=== PATIENT | female | born 1945 | race Caucasian/White ===

== ENCOUNTER 2017-07-10 12:39 | Emergency (ER) | payer MEDICARE ==
[~2017-07-10] VITALS: Ht 149.9 cm; Wt 77.1 kg
[~2017-07-10 12:39] MED LIST: AMLODIPINE BESY10 MG; CARAFATE1 GM/10 ML PO; DEXILANT30 MG PO; HEARTBURN RELI150 M1; LISINOPRIL10 MG; NEXIUM40 MG; NITROFURANTOIN100 MG PO; NYSTATIN15 G2 TP; PHENAZOPYRIDIN100 MG PO; PRAVASTATIN SOD40 MG; PROTONIX40 MG PO; [UNRECOGNIZED DRUG - REMARK]
== END 2017-07-10 15:34 | disposition left against medical advice (07) ==
LOC: ER 12:39
DX: I10 Essential (primary) hypertension (principal)

== ENCOUNTER 2017-07-26 02:16 | Emergency (ER) | payer MEDICARE ==
[~2017-07-26] VITALS: Ht 149.9 cm; Wt 77.1 kg
[2017-07-26] MEDS ORDERED: ASPIRIN 81 MG CHEW TAB PO ONE (03:15)
[2017-07-26 03:18] LABS: BASOPHILS % 0.5 % (0.0-1.0); EOSINOPHILS # (AUTO) 0.1 (0.0-0.4); EOSINOPHILS % 1.5 % (0.0-6.0); HEMATOCRIT 40.3 % (34.2-44.1); HEMOGLOBIN 13.5 g/dL (12.0-16.0); LYMPHOCYTES # (AUTO) 2.7 (1.0-3.2); MEAN CORPUSCULAR HEMOGLOBIN 31.8 pg (28-32); MEAN CORPUSCULAR HGB CONC 33.5 g/dL (31-35); MONOCYTES # (AUTO) 0.6 (0.2-0.8); MONOCYTES % 9.4 % (4.4-11.3); NEUTROPHILS # (AUTO) 2.8 (2.1-6.9); NEUTROPHILS % 44.4 % (38.7-80.0); PLATELET COUNT 180 x10e3/uL (140-360); RED BLOOD COUNT 4.24 x10e6/uL (3.6-5.1); RED CELL DISTRIBUTION WIDTH 12.9 % (11.7-14.4)
[2017-07-26 03:24] LABS: INR 0.88; PROTHROMBIN TIME 12.4 seconds (11.9-14.5)
[2017-07-26 03:31] LABS: ALANINE AMINOTRANSFERASE 18 IU/L (0-55); ALBUMIN 3.8 g/dL (3.5-5.0); ALBUMIN/GLOBULIN RATIO 1.1 (0.8-2.0); ALKALINE PHOSPHATASE 81 IU/L (40-150); ANION GAP 15.7 mmol/L (8-16); BLOOD UREA NITROGEN 19 mg/dL (7-26); BUN/CREATININE RATIO 22 (6-25); CALCIUM 9.6 mg/dL (8.4-10.2); CARBON DIOXIDE 26 mmol/L (22-29); CHLORIDE 103 mmol/L (98-107); CREATINE KINASE 34 IU/L (29-168); CREATININE, SERUM 0.86 mg/dL (0.57-1.11); EST GLOMERULAR FILTRATION RATE > 60 ML/MIN (60-); GLUCOSE 123 mg/dL (74-118); POTASSIUM 3.7 mmol/L (3.5-5.1); SODIUM 141 mmol/L (136-145)
[2017-07-26 03:37] LABS: TROPONIN I 0.007 ng/mL (0-0.300)
[2017-07-26 04:11] LABS: BILIRUBIN,URINE NEGATIVE (NEGATIVE); KETONES,URINE NEGATIVE (NEGATIVE); LEUKOCYTE ESTERASE ,URINE NEGATIVE (NEGATIVE); NITRITE,URINE NEGATIVE (NEGATIVE); PROTEIN,URINE DIPSTICK NEGATIVE (NEGATIVE); URINE UROBILINOGEN 0.2 mg/dL (0.2 - 1)
[2017-07-26 04:14] LABS: CLARITY,URINE CLEAR (CLEAR); COLOR,URINE YELLOW (YELLOW)
[2017-07-26 04:26] LABS: BACTERIA,URINE RARE /HPF; EPITHELIAL CELLS,URINE FEW /LPF; RBC,URINE 0-5 /HPF (0-5); WBC,URINE (MAN) 0-5 /HPF (0-5)
[2017-07-26] MEDS ORDERED: BELLADONNA ALK/PHENOBARBITAL 5 ML UDC PO ONE (05:30)
[2017-07-26] MEDS ORDERED: LIDOCAINE VISC 2% SOLN 15 ML UDC PO ONE (05:30)
[2017-07-26] MEDS ORDERED: MAGNESIUM/ALUMINUM/SIMETHICONE 30 ML UDC PO ONE (05:30)
--- NOTE | 2017-07-26 05:47 | Diagnostic Imaging Report ---
EXAMINATION: CHEST SINGLE (PORTABLE) INDICATION: Chest pain COMPARISON: None FINDINGS: TUBES and LINES: None. LUNGS: Lungs are not well inflated. Lungs are clear. There is no evidence of pneumonia or pulmonary edema. PLEURA: No pleural effusion or pneumothorax. HEART AND MEDIASTINUM: The cardiomediastinal silhouette is unremarkable. BONES AND SOFT TISSUES: No acute osseous lesion. Soft tissues are unremarkable. UPPER ABDOMEN: No free air under the diaphragm. IMPRESSION: No acute thoracic abnormality. Signed by: Dr. Herminio López M.D. on 07/26/2017 5:44 AM
== END 2017-07-26 08:02 | disposition home or self-care (01) ==
LOC: ER 02:16
DX: I10 Essential (primary) hypertension (principal); K21.0 Gastro-esophageal reflux disease with esophagitis; K46.9 Unspecified abdominal hernia without obstruction or gangrene
CPT/HCPCS: 36415; 71010; 80053; 81001; 82550; 82553; 83880; 84484; 85025; 85610; 85730; 87086; 93005; 99284

== ENCOUNTER 2017-08-10 15:02 | Emergency (ER) | payer MEDICARE ==
[~2017-08-10] VITALS: Ht 149.9 cm; Wt 77.1 kg
[2017-08-10 16:35] LABS: BASOPHILS % 0.5 % (0.0-1.0); EOSINOPHILS % 0.4 % (0.0-6.0); HEMATOCRIT 44.5 % (34.2-44.1); LYMPHOCYTES # (AUTO) 1.8 (1.0-3.2); LYMPHOCYTES % 32.5 % (18.0-39.1); MEAN CORPUSCULAR HEMOGLOBIN 32.3 pg (28-32); MEAN CORPUSCULAR HGB CONC 33.7 g/dL (31-35); MEAN CORPUSCULAR VOLUME 95.9 fL (81-99); MONOCYTES # (AUTO) 0.5 (0.2-0.8); MONOCYTES % 8.3 % (4.4-11.3); NEUTROPHILS # (AUTO) 3.2 (2.1-6.9); NEUTROPHILS % 58.3 % (38.7-80.0); PLATELET COUNT 198 x10e3/uL (140-360); RED BLOOD COUNT 4.64 x10e6/uL (3.6-5.1); RED CELL DISTRIBUTION WIDTH 12.7 % (11.7-14.4)
[2017-08-10 16:47] LABS: INR 0.92; PROTHROMBIN TIME 12.8 seconds (11.9-14.5)
[2017-08-10 16:48] LABS: PARTIAL THROMBOPLASTIN TIME 36.4 seconds (23.8-35.5)
[2017-08-10 16:56] LABS: ALBUMIN 4.4 g/dL (3.5-5.0); ALBUMIN/GLOBULIN RATIO 1.2 (0.8-2.0); ANION GAP 14.8 mmol/L (8-16); CALCIUM 10.1 mg/dL (8.4-10.2); CREATININE, SERUM 0.93 mg/dL (0.57-1.11); POTASSIUM 3.8 mmol/L (3.5-5.1)
[2017-08-10 17:02] LABS: CREATINE KINASE MB 0.6 ng/mL (0.00-5.00); TROPONIN I 0.008 ng/mL (0-0.300)
[2017-08-10] MEDS ORDERED: AMLODIPINE BESY10 MG PO (18:15)
[2017-08-10] MEDS ORDERED: LISINOPRIL10 MG PO (18:15)
[2017-08-10] MEDS ORDERED: DIPHENOXYLATE-1 EACH PO (18:15)
[2017-08-10 18:51] LABS: BILIRUBIN,URINE NEGATIVE (NEGATIVE); KETONES,URINE 2+ (NEGATIVE); LEUKOCYTE ESTERASE ,URINE TRACE (NEGATIVE); NITRITE,URINE NEGATIVE (NEGATIVE); URINE UROBILINOGEN 0.2 mg/dL (0.2 - 1)
[2017-08-10 18:55] LABS: CLARITY,URINE SL CLOUDY (CLEAR); COLOR,URINE YELLOW (YELLOW); PROTEIN,URINE DIPSTICK TRACE (NEGATIVE)
--- NOTE | 2017-08-10 18:55 | Diagnostic Imaging Report ---
PROCEDURE:ABDOMEN ACUTE SERIES W/PA CXR COMPARISON:Patients [facility], DX, ABDOMEN COMP INCL UPR OR DECUB, 01/05/2017, 6:38. Patients [facility], , CHEST SINGLE (PORTABLE), 07/26/2017, 4:15. INDICATIONS:ABDOMEN PAIN, HIATAL HERNIA FINDINGS: CHEST: No acute thoracic abnormality. No pleural effusion or pneumothorax. No focal consolidations. Mild calcifications of the aortic arch. BOWEL PATTERN: Nonspecific, nonobstructive bowel gas pattern. SOFT TISSUES: Cholecystectomy clips. Multiple loops projected on the pelvis. BONES: Degenerative changes of the lumbar spine with bilateral facet arthropathy predominantly at L4-L5 and L5-S1. CONCLUSION: 1. No acute thoracic abnormality. 2. No evidence of bowel obstruction. Radha Long M.D. Dictated by: Radha Long M.D. on 08/10/2017 at 19:03 Electronically approved by: Radha Long M.D. on 08/10/2017 at 19:03
[2017-08-10 19:05] LABS: EPITHELIAL CELLS,URINE FEW /LPF; WBC,URINE (MAN) 0-5 /HPF (0-5)
[2017-08-10] MEDS ORDERED: DIATRIZOATE MEGL/DIATRIZOA SOD 30 ML BTL PO ONE (20:20)
[2017-08-10] MEDS ORDERED: SODIUM CHLORIDE 0.9% 250ML 250 ML IV ONE (20:45)
--- NOTE | 2017-08-10 21:27 | Diagnostic Imaging Report ---
EXAM: CT Abdomen and Pelvis WITH contrast INDICATION: Diverticulitis COMPARISON: None. TECHNIQUE: Abdomen and pelvis were scanned utilizing a multidetector helical scanner from the lung base to the pubic symphysis after administration of IV contrast. Coronal and sagittal reformations were obtained. Routine protocol was performed. Scan was performed when during portal venous phase. IV CONTRAST: 100 mL of Isovue-370 ORAL CONTRAST: Gastrografin RADIATION DOSE: Total DLP: 615.90 mGy*cm Estimated effective dose: (DLP x 0.015 x size factor) mSv COMPLICATIONS: None FINDINGS: LINES and TUBES: None. LOWER THORAX: Unremarkable HEPATOBILIARY: No focal hepatic lesions. No biliary ductal dilation. GALLBLADDER: There are cholecystectomy clips. SPLEEN: No splenomegaly. PANCREAS: No focal masses or ductal dilatation. ADRENALS: No adrenal nodules KIDNEYS/URETERS: Kidneys enhance symmetrically. No hydronephrosis. No cystic or solid mass lesions. No stones. GI TRACT: No abnormal distention, wall thickening, or evidence of bowel obstruction. Appendix is normal. PELVIC ORGANS/BLADDER: Multi fibroid uterus. LYMPH NODES: No lymphadenopathy. VESSELS: There is mild atherosclerotic disease in the aorta and major arterial branches. PERITONEUM / RETROPERITONEUM: No free air or fluid. BONES: There are degenerative changes in the lumbar spine. SOFT TISSUES: Unremarkable. IMPRESSION: 1. No evidence of acute intra-abdominal or pelvic abnormality. Specifically, no evidence of diverticulitis or diverticulosis. 2. 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 3. Multi fibroid uterus Signed by: Dr. Herminio López M.D. on 08/10/2017 9:23 PM
[2017-08-11] MEDS ORDERED: SODIUM CHLORIDE 0.9% 50ML 50 ML ONE (04:50)
[2017-08-11] MEDS ORDERED: IOPAMIDOL 370 MG/ML 200 ML INFUS..BTL INJ ONE (04:50)
== END 2017-08-10 22:32 | disposition home or self-care (01) ==
LOC: ER 15:02
DX: R10.32 Left lower quadrant pain (principal); I10 Essential (primary) hypertension; E11.9 Type 2 diabetes mellitus without complications; E78.5 Hyperlipidemia, unspecified; K21.9 Gastro-esophageal reflux disease without esophagitis
CPT/HCPCS: 36415; 74022; 74177; 80053; 81001; 82150; 82550; 82553; 83690; 83880; 84484; 85025; 85610; 85730; 93005; 99284; J7050

== ENCOUNTER 2017-08-12 12:17 | Observation (INO) | payer MEDICARE ==
[~2017-08-12] VITALS: Ht 149.9 cm; Wt 76.7 kg
[~2017-08-12 12:17] MED LIST changes: +AMLODIPINE BESY10 MG PO; +DIPHENOXYLATE-1 EACH PO; +LISINOPRIL10 MG PO
[2017-08-12] MEDS ORDERED: SODIUM CHLORIDE 0.9% 1000ML 1,000 ML IV STA (12:41)
[2017-08-12] MEDS ORDERED: PANTOPRAZOLE 40 MG 10ML VIAL IV STA ×2 (12:41→23:18)
[2017-08-12] MEDS ORDERED: MAGNESIUM/ALUMINUM/SIMETHICONE 30 ML UDC PO ONE (12:45)
[2017-08-12] MEDS ORDERED: BELLADONNA ALK/PHENOBARBITAL 5 ML UDC PO ONE (12:45)
[2017-08-12] MEDS ORDERED: LIDOCAINE VISC 2% SOLN 15 ML UDC PO ONE (13:30)
[2017-08-12 13:53] LABS: BASOPHILS % 0.7 % (0.0-1.0); BILIRUBIN,URINE NEGATIVE (NEGATIVE); EOSINOPHILS % 0.7 % (0.0-6.0); HEMATOCRIT 39.4 % (34.2-44.1); HEMOGLOBIN 13.3 g/dL (12.0-16.0); KETONES,URINE NEGATIVE (NEGATIVE); LEUKOCYTE ESTERASE ,URINE TRACE (NEGATIVE); LYMPHOCYTES # (AUTO) 1.3 (1.0-3.2); LYMPHOCYTES % 30.6 % (18.0-39.1); MEAN CORPUSCULAR HEMOGLOBIN 32.7 pg (28-32); MEAN CORPUSCULAR HGB CONC 33.8 g/dL (31-35); MEAN CORPUSCULAR VOLUME 96.8 fL (81-99); MONOCYTES # (AUTO) 0.4 (0.2-0.8); MONOCYTES % 8.6 % (4.4-11.3); NEUTROPHILS # (AUTO) 2.4 (2.1-6.9); NEUTROPHILS % 59.4 % (38.7-80.0); NITRITE,URINE NEGATIVE (NEGATIVE); PLATELET COUNT 130 x10e3/uL (140-360); PROTEIN,URINE DIPSTICK NEGATIVE (NEGATIVE); RED BLOOD COUNT 4.07 x10e6/uL (3.6-5.1); RED CELL DISTRIBUTION WIDTH 12.7 % (11.7-14.4); URINE UROBILINOGEN 0.2 mg/dL (0.2 - 1)
[2017-08-12 13:56] LABS: CLARITY,URINE HAZY (CLEAR); COLOR,URINE YELLOW (YELLOW)
[2017-08-12 14:03] LABS: BACTERIA,URINE FEW /HPF; EPITHELIAL CELLS,URINE FEW /LPF; RBC,URINE 0-5 /HPF (0-5); WBC,URINE (MAN) 0-5 /HPF (0-5)
[2017-08-12 14:19] LABS: ALANINE AMINOTRANSFERASE 13 IU/L (0-55); ALBUMIN 4.1 g/dL (3.5-5.0); ALBUMIN/GLOBULIN RATIO 1.1 (0.8-2.0); ALKALINE PHOSPHATASE 78 IU/L (40-150); AMYLASE 48 U/L (25-125); ANION GAP 14.7 mmol/L (8-16); BLOOD UREA NITROGEN 19 mg/dL (7-26); BUN/CREATININE RATIO 22 (6-25); CALCIUM 9.7 mg/dL (8.4-10.2); CARBON DIOXIDE 24 mmol/L (22-29); CHLORIDE 106 mmol/L (98-107); CREATININE, SERUM 0.88 mg/dL (0.57-1.11); EST GLOMERULAR FILTRATION RATE > 60 ML/MIN (60-); GLUCOSE 117 mg/dL (74-118); LIPASE 30 U/L (8-78); POTASSIUM 4.7 mmol/L (3.5-5.1); SODIUM 140 mmol/L (136-145)
[2017-08-12 15:02] LABS: CREATINE KINASE MB 0.9 ng/mL (0.00-5.00); TROPONIN I 0.018 ng/mL (0-0.300)
--- NOTE | 2017-08-12 17:03 | Diagnostic Imaging Report ---
EXAM: CTA Abdomen and Pelvis WITH and without contrast INDICATION: Abdominal pain COMPARISON: CT abdomen and pelvis 08/10/2017 TECHNIQUE: Abdomen and pelvis were scanned utilizing a multidetector helical scanner from the lung base to the pubic symphysis after administration of contrast. Coronal and sagittal reformations were obtained. Protocol: General survey IV CONTRAST: 100 mL of Isovue 370 ORAL CONTRAST: None COMPLICATIONS: None RADIATION DOSE: Total Exam DLP: 1127.8 mGy*cm. CTDIvol has been reviewed. It is below the limits set by the Radiation Protocol Committee (RPC). FINDINGS: LINES: None. Lower thorax: No parenchymal abnormality. No pneumothorax. No pleural effusion. Liver: No focal mass. No hepatomegaly. Normal parenchyma. The hepatic and portal veins are patent. Gallbladder: Cholecystectomy. Biliary tree: No intrahepatic duct dilation. No extrahepatic duct dilation. Spleen: No splenomegaly. No focal mass. Pancreas: Normal parenchymal enhancement. No focal mass. Normal pancreatic duct. No peripancreatic inflammatory changes. Kidneys: No obstructing calculi. No hydronephrosis. No solid enhancing mass. No cysts. No perinephric soft tissue inflammatory changes. Adrenal glands: No adrenal nodules.. Bladder: Normal urinary bladder. Pelvic organs: Multi fibroid uterus. GI: No bowel wall thickening. No air-fluid levels. The stomach and small bowel are normal. The colon is normal. Normal appendix. A moderate amount of retained feces limits intraluminal evaluation of the colon. Peritoneum/retroperitoneum: No pneumoperitoneum. No ascites. No drainable fluid collection. Lymph nodes: No lymphadenopathy. . Vessels: The abdominal aorta and iliac vessels are patent. The celiac, superior mesenteric, and inferior mesenteric arteries are patent. Single bilateral renal arteries are patent. Atherosclerotic calcifications. No evidence of dissection. Bones: No focal abnormality. Degenerative changes of the lumbar spine. Soft tissues: No focal abnormality. IMPRESSION: No acute abnormality of the abdomen and pelvis. Signed by: Dr. Alexis Hartmann M.D. on 08/12/2017 5:00 PM
[2017-08-12] MEDS ORDERED: HYDROMORPHONE 2MG/ML INJ IV PRN (18:15)
[2017-08-12] MEDS ORDERED: IOPAMIDOL 370 MG/ML 200 ML INFUS..BTL INJ ONE (18:24)
[2017-08-12] MEDS ORDERED: SODIUM CHLORIDE 0.9% 50ML 100 ML ONE (18:24)
[2017-08-12 20:00] VITALS: BP 148/69
[2017-08-12] MEDS: SODIUM CHLORIDE 0.9% 1000ML 1,000 ML IV SCH (20:04)
[2017-08-12 21:32] VITALS: BP 148/69
[2017-08-12] MEDS ORDERED: PANTOPRAZOLE SO40 MG PO (22:45)
[2017-08-12] MEDS ORDERED: ZANTAC150 MG PO (22:45)
[2017-08-12] MEDS ORDERED: FAMOTIDINE 20 MG TAB PO PRN (23:30)
[2017-08-12] MEDS ORDERED: PANTOPRAZOLE SOD 40 MG TABEC PO SCH (23:30)
[2017-08-13] VITALS (8 sets, daily range): BP systolic 114–162; BP diastolic 58–74
[2017-08-13] MEDS: LISINOPRIL 10 MG TAB PO SCH ×2 (00:56→21:15)
[2017-08-13] MEDS: SODIUM CHLORIDE 0.9% 1000ML 1,000 ML IV SCH ×3 (01:57→16:17)
[2017-08-13] MEDS: AMLODIPINE BESYLATE 10 MG TAB PO SCH (08:37)
[2017-08-13] MEDS: PANTOPRAZOLE 40 MG 10ML VIAL IV SCH ×2 (08:46→21:15)
[2017-08-13] MEDS ORDERED: PANTOPRAZOLE 40 MG 10ML VIAL IV SCH (09:00)
[2017-08-14] VITALS (7 sets, daily range): BP systolic 135–166; BP diastolic 65–74
[2017-08-14] MEDS: SODIUM CHLORIDE 0.9% 1000ML 1,000 ML IV SCH ×3 (03:44→16:58)
[2017-08-14] MEDS: PANTOPRAZOLE 40 MG 10ML VIAL IV SCH ×2 (07:19→21:01)
[2017-08-14] MEDS: ONDANSETRON HCL INJ 2 MG/ML VIAL IV PRN (08:11)
[2017-08-14] MEDS: AMLODIPINE BESYLATE 10 MG TAB PO SCH (08:18)
[2017-08-14] MEDS ORDERED: ONDANSETRON HCL INJ 2 MG/ML VIAL IV PRN (12:30)
[2017-08-14] MEDS ORDERED: HYDROMORPHONE 1MG/1ML INJ IV PRN (12:30)
[2017-08-14] MEDS ORDERED: HYDROMORPHONE 2MG/ML INJ IV PRN (12:45)
[2017-08-14] MEDS ORDERED: MIDAZOLAM HCL 2 MG/2 ML VIAL ONE (17:17)
[2017-08-14] MEDS ORDERED: FENTANYL CITRATE/PF 100MCG/2 ML INJ ONE (17:17)
[2017-08-14] MEDS ORDERED: PROPOFOL IV EMULSION 10 MG/ML 20 ML VIAL ONE (18:02)
[2017-08-14] MEDS ORDERED: LIDOCAINE HCL 2% LOCAL INJ 5 ML SDV VIAL INJ ONE (18:02)
[2017-08-14] MEDS: LISINOPRIL 10 MG TAB PO SCH (21:02)
[2017-08-15] VITALS (7 sets, daily range): BP systolic 133–178; BP diastolic 61–80
[2017-08-15] MEDS: SODIUM CHLORIDE 0.9% 1000ML 1,000 ML IV SCH ×3 (01:57→17:57)
[2017-08-15] MEDS: AMLODIPINE BESYLATE 10 MG TAB PO SCH (04:24)
[2017-08-15] MEDS: ONDANSETRON HCL INJ 2 MG/ML VIAL IV PRN ×2 (04:25→15:48)
[2017-08-15] MEDS: PANTOPRAZOLE 40 MG 10ML VIAL IV SCH ×2 (07:53→20:40)
[2017-08-15] MEDS: LISINOPRIL 10 MG TAB PO SCH (20:40)
--- NOTE | 2017-08-18 12:46 | Diagnostic Imaging Report ---
PROCEDURE: X-RAY UPPER GI SERIES WITH SMALL BOWEL FOLLOW-THROUGH TECHNIQUE:Multiple fluoroscopic spot images were acquired of the esophagus, stomach, and duodenum after the administration of thin and thick barium and effervescent crystals. Images were obtained in the upright and supine positions from multiple obliquities. Additional oral contrast was administered to the patient. Serial overhead images were obtained to document the progression of the contrast in the small bowel. Spot compression images of the terminal ileum were obtained. COMPARISON: None. INDICATIONS: PAIN AFTER EATING FINDINGS: ESOPHAGUS: Motility: Within normal limits. Mucosa: Unremarkable. Distensibility: Normal. GASTROESOPHAGEAL JUNCTION: No evidence of hiatal hernia. GASTROESOPHAGEAL REFLUX: Reflux to the level of the mid thoracic esophagus. STOMACH: Normally distensible and demonstrates normal contours and mucosal pattern. DUODENUM: Bulb and sweep are normal. Duodenal-jejunal junction is in the normal expected position. SMALL BOWEL FOLLOW THROUGH: Small bowel loops are normal in caliber and distribution. Spot compression views of the terminal ileum are normal. The transit time was normal. IMPRESSION: No acute radiographic abnormality. Gastroesophageal reflux to the midthoracic esophagus. Dictated by: Alexis Hartmann M.D. on 08/18/2017 at 12:55 Electronically approved by: Alexis Hartmann M.D. on 08/18/2017 at 12:55
== END 2017-08-15 20:52 | disposition home or self-care (01) ==
LOC: ER 12:17 → ERHOLD 18:46 → MED/SURG 20:06
PROVIDERS: ADMIT Surgery; ATTEND Surgery
DX: K29.70 Gastritis, unspecified, without bleeding (principal); K21.9 Gastro-esophageal reflux disease without esophagitis; I10 Essential (primary) hypertension; Z90.49 Acquired absence of other specified parts of digestive tract
CPT/HCPCS: 36415; 43239; 74174; 74249; 80053; 81001; 82150; 82550; 82553; 83690; 84484; 85025; 87086; 88305; 88312; 93005; 96360; 99284; G0378 ×4; J1170; J2001; J2250; J2405 ×2; J7030 ×4; Q9967

== ENCOUNTER 2017-11-18 19:16 | Emergency (ER) | payer MEDICARE ==
[~2017-11-18] VITALS: Ht 149.9 cm; Wt 76.7 kg
[~2017-11-18 19:16] MED LIST changes: +PANTOPRAZOLE SO40 MG PO; +ZANTAC150 MG PO
--- OUTSIDE RECORDS SUMMARY | 2017-11-18 19:19 | XMS REPORT ---
Author Author [facility] Address Unknown Phone Unavailable Care Team Providers Care Audit Associate Name Role Phone TEDDY OBREGON Unavailable Unavailable PEDRO LUIS PENALOZA Unavailable Unavailable Problems This patient has no known problems. Allergies, Adverse Reactions, Alerts This patient has no known allergies or adverse reactions. Medications This patient has no known medications. Results Test Description Test Time Test Comments Text Results Atomic Results Result Comments UPPER GI W/SMALL BOW [place] [address] Patient Name: JORDAN LINDER MR #: [id number] : 1945 Age/Sex: 71/F Req #: [id number] [facility] Physician: TEDDY OBREGON MD Ordered by: TEDDY OBREGON MD Report #: [id number] Location: MED/SURG Room/Bed: [facility] Procedure: [id number] DX/UPPER GI W/SMALL BOW Exam Date: 08/15/17 Exam Time: 0800 REPORT STATUS: Signed PROCEDURE: X-RAY UPPER GI SERIES WITH SMALL BOWEL FOLLOW- THROUGH TECHNIQUE: Multiple fluoroscopic spot images were acquired of the esophagus, stomach, and duodenum after the administration of thin and thick barium and effervescent crystals. Images were obtained in the upright and supine positions from multiple obliquities. Additional oral contrast was administered to the patient. Serial overhead images were obtained to document the progression of the contrast in the small bowel. Spot compression images of the terminal ileum were obtained. COMPARISON: None. INDICATIONS: PAIN AFTER EATING FINDINGS: ESOPHAGUS: Motility: Within normal limits. Mucosa: Unremarkable. Distensibility : Normal. GASTROESOPHAGEAL JUNCTION: No evidence of hiatal hernia. GASTROESOPHAGEAL REFLUX: Reflux to the level of the mid thoracic esophagus. STOMACH: Normally distensible and demonstrates normal contours and mucosal pattern. DUODENUM: Bulb and sweep are normal. Duodenal-jejunal junction is in the normal expected position. SMALL BOWEL FOLLOW THROUGH : Small bowel loops are normal in caliber and distribution. Spot compression views of the terminal ileum are normal. The transit time was normal. IMPRESSION: No acute radiographic abnormality. Gastroesophageal reflux to the midthoracic esophagus. Dictated by: Mathew Billings M.D. on 08/18/2017 at 12:55 Electronically approved by: Mathew Billings M.D. on 08/18/2017 at 12:55 Dictated By: MATHEW BILLINGS MD 1255 Transcribed By: LUCIO on 08/18/17 1255 COPY TO: TEDDY OBREGON MD CTA ABD/PELVIS [place] [address] Patient Name: JORDAN LINDER MR #: [id number] : 1945 Age/Sex: 71/F Req # : [id number] Adm Physician: Ordered by: MARY SIMPSON MD Report #: [id number] Location: ER Room/Bed: Procedure: [id number] CT/CTA ABD/PELVIS Exam Date: 08/12/17 Exam Time: 1530 REPORT STATUS: Signed EXAM: CTA Abdomen and Pelvis WITH and without contrast INDICATION: Abdominal pain COMPARISON: CT abdomen and pelvis 08/10/2017 TECHNIQUE: Abdomen and pelvis were scanned utilizing a multidetector helical scanner from the lung base to the pubic symphysis after administration of contrast. Coronal and sagittal reformations were obtained. Protocol: General survey IV CONTRAST: 100 mL of Isovue 370 ORAL CONTRAST: None COMPLICATIONS: None RADIATION DOSE: Total Exam DLP: 1127.8 mGy*cm. CTDIvol has been reviewed. It is below the limits set by the Radiation Protocol Committee (RPC). FINDINGS: LINES: None. Lower thorax: No parenchymal abnormality. No pneumothorax. No pleural effusion. Liver: No focal mass. No hepatomegaly. Normal parenchyma. The hepatic and portal veins are patent. Gallbladder: Cholecystectomy. Biliary tree: No intrahepatic duct dilation. No extrahepatic duct dilation. Spleen: No splenomegaly. No focal mass. Pancreas: Normal parenchymal enhancement. No focal mass. Normal pancreatic duct. No peripancreatic inflammatory changes. Kidneys: No obstructing calculi. No hydronephrosis. No solid enhancing mass. No cysts. No perinephric soft tissue inflammatory changes. Adrenal glands: No adrenal nodules.. Bladder: Normal urinary bladder. Pelvic organs: Multi fibroid uterus. GI: No bowel wall thickening. No air-fluid levels. The stomach and small bowel are normal. The colon is normal. Normal appendix. A moderate amount of retained feces limits intraluminal evaluation of the colon. Peritoneum/retroperitoneum: No pneumoperitoneum. No ascites. No drainable fluid collection. Lymph nodes: No lymphadenopathy. . Vessels: The abdominal aorta and iliac vessels are patent. The celiac, superior mesenteric, and inferior mesenteric arteries are patent. Single bilateral renal arteries are patent. Atherosclerotic calcifications. No evidence of dissection. Bones: No focal abnormality. Degenerative changes of the lumbar spine. Soft tissues: No focal abnormality. IMPRESSION: No acute abnormality of the abdomen and pelvis. Signed by: Dr. Mathew Billings M.D. on 08/12/2017 5:00 PM Dictated By: MATHEW BILLINGS MD 99 Transcribed By: DEEDEE on 08/12/171699 COPY TO: MARY SIMPSON MD CT ABDOMEN/PELVIS [place] [address] Patient Name: JORDAN LINDER MR #: [id number] : 1945 Age/Sex: 71/F Req #: [id number] [facility] Physician: Ordered by: PEDRO LUIS PENALOZA MD Report #: [id number] Location: ER Room/Bed: Procedure: [id number] CT/CT ABDOMEN/PELVIS W Exam Date: 08/10/17 Exam Time: 2100 REPORT STATUS: Signed EXAM: CT Abdomen and Pelvis WITH contrast INDICATION: Diverticulitis COMPARISON: None. TECHNIQUE: Abdomen and pelvis were scanned utilizing a multidetector helical scanner from the lung base to the pubic symphysis after administration of IV contrast. Coronal and sagittal reformations were obtained. Routine protocol was performed. Scan was performed when during portal venous phase. IV CONTRAST: 100 mL of Isovue-370 ORAL CONTRAST: Gastrografin RADIATION DOSE: Total DLP: 615.90 mGy*cm Estimated effective dose: (DLP x 0.015 x size factor) mSv COMPLICATIONS: None FINDINGS: LINES and TUBES: None. LOWER THORAX: Unremarkable HEPATOBILIARY: No focal hepatic lesions. No biliary ductal dilation. GALLBLADDER: There are cholecystectomy clips. SPLEEN: No splenomegaly. PANCREAS: No focal masses or ductal dilatation. ADRENALS: No adrenal nodules KIDNEYS/URETERS: Kidneys enhance symmetrically. No hydronephrosis. No cystic or solid mass lesions. No stones. GI TRACT: No abnormal distention, wall thickening, or evidence of bowel obstruction. Appendix is normal. PELVIC ORGANS/BLADDER: Multi fibroid uterus. LYMPH NODES: No lymphadenopathy. VESSELS: There is mild atherosclerotic disease in the aorta and major arterial branches. PERITONEUM / RETROPERITONEUM: No free air or fluid. BONES: There are degenerative changes in the lumbar spine. SOFT TISSUES: Unremarkable. IMPRESSION: 1. No evidence of acute intra-abdominal or pelvic abnormality. Specifically, no evidence of diverticulitis or diverticulosis. 2. 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 3. Multi fibroid uterus Signed by: Dr. Herminio López M.D. on 08/10/2017 9: 23 PM Dictated By: HERMINIO العلي MD 22 Transcribed By: DEEDEE on 08/10/172122 COPY TO: PEDRO LUIS PENALOZA MD ABDOMEN ACUTE SERIES W/PA CXR [place] [address] Patient Name: JORDAN LINDER MR #: [id number] : 1945 Age/Sex: 71/F Req #: [id number] Adm Physician: Ordered by: LOLI ALFARO MD Report #: [id number] Location: ER Room/Bed: Procedure: [id number] DX/ABDOMEN ACUTE SERIES W/PA CXR Exam Date: 08/10/17 Exam Time: 1830 REPORT STATUS: Signed PROCEDURE : ABDOMEN ACUTE SERIES W/PA CXR COMPARISON: [facility], , ABDOMEN COMP INCL UPR OR DECUB, 01/05/2017, 6:38. [facility], , CHEST SINGLE (PORTABLE), 07/26/2017, 4:15. INDICATIONS: ABDOMEN PAIN, HIATAL HERNIA FINDINGS: CHEST: No acute thoracic abnormality. No pleural effusion or pneumothorax. No focal consolidations. Mild calcifications of the aortic arch. BOWEL PATTERN: Nonspecific, nonobstructive bowel gas pattern. SOFT TISSUES: Cholecystectomy clips. Multiple loops projected on the pelvis. BONES: Degenerative changes of the lumbar spine with bilateral facet arthropathy predominantly at L4-L5 and L5-S1. CONCLUSION: 1. No acute thoracic abnormality. 2. No evidence of bowel obstruction. Radha Juarez M.D. Dictated by: Radha Juarez M.D. on 08/10/2017 at 19:03 Electronically approved by: Radha Juarez M.D. on 08/10/2017 at 19: 03 Dictated By: WYATT JUAREZ MD, MD 02 Transcribed By: LUCIO on 08/10/171902 COPY TO: LOLI ALFARO MD CHEST SINGLE (PORTABLE) [place] [address] Patient Name: JORDAN LINDER MR #: [id number] : 1945 Age/Sex: 71/F Req #: [id number] Adm Physician: Ordered by: PEDRO LUIS PENALOZA MD Report #: [id number] Location: ER Room/Bed: Procedure: [id number] DX/CHEST SINGLE (PORTABLE) Exam Date: 07/26/17 Exam Time: 0415 REPORT STATUS: Signed EXAMINATION: CHEST SINGLE (PORTABLE) INDICATION: Chest pain COMPARISON: None FINDINGS: TUBES and LINES: None. LUNGS: Lungs are not well inflated. Lungs are clear. There is no evidence of pneumonia or pulmonary edema. PLEURA: No pleural effusion or pneumothorax. HEART AND MEDIASTINUM: The cardiomediastinal silhouette is unremarkable. BONES AND SOFT TISSUES: No acute osseous lesion. Soft tissues are unremarkable. UPPER ABDOMEN: No free air under the diaphragm. IMPRESSION: No acute thoracic abnormality. Signed by: Dr. Herminio López M.D. on 07/26/2017 5:44 AM Dictated By: HERMINIO العلي MD 3 Transcribed By: DEEDEE on 07/26/17543 COPY TO: PEDRO LUIS PENALOZA MD
[2017-11-18 21:58] LABS: BILIRUBIN,URINE NEGATIVE (NEGATIVE); CLARITY,URINE CLEAR (CLEAR); COLOR,URINE YELLOW (YELLOW); KETONES,URINE NEGATIVE (NEGATIVE); LEUKOCYTE ESTERASE ,URINE NEGATIVE (NEGATIVE); NITRITE,URINE NEGATIVE (NEGATIVE); PROTEIN,URINE DIPSTICK NEGATIVE (NEGATIVE); RBC,URINE 0-5 /HPF (0-5); URINE UROBILINOGEN 0.2 mg/dL (0.2 - 1); WBC,URINE (MAN) 0-5 /HPF (0-5)
[2017-11-18 21:59] LABS: BACTERIA,URINE FEW /HPF; EPITHELIAL CELLS,URINE MANY /LPF
[2017-11-18 22:01] VITALS: BP 154/84
== END 2017-11-18 22:06 | disposition home or self-care (01) ==
LOC: ER 19:16
DX: M54.5 Low back pain (principal); S39.012A Strain of muscle, fascia and tendon of lower back, initial encounter; I10 Essential (primary) hypertension; E78.5 Hyperlipidemia, unspecified; K21.9 Gastro-esophageal reflux disease without esophagitis
CPT/HCPCS: 81001; 87086; 99282

== ENCOUNTER 2017-11-22 03:54 | Emergency (ER) | payer MEDICARE ==
[~2017-11-22] VITALS: Ht 149.9 cm; Wt 76.7 kg
--- OUTSIDE RECORDS SUMMARY | 2017-11-22 03:58 | XMS REPORT | Continuity of Care Document ---
Author Author [facility] Organization [facility] Address [address] [facility] [place] [address] Phone Unavailable Care Team Providers Care Animal Chiropractor Name Role Phone NONSTAFF PCP Unavailable Insurance Providers Guarantor Glory Linder Address [address] [facility] [address] [place] [address] Email [email or web address] Payer [employer] Policy Number [id number] Subscriber's Name Glory Linder Relationship 18 Self / Same As Patient Group Number [id number] Group Name [place] Effective Date 15 Advance Directives Directive Response Recorded Date/Time Does the patient have an advance directive? No 08/12/17 9:05pm If yes, is advance directive on file with [facility]? No 04/23/12 6:39am If not on file with [facility] will patient provide a copy? No 05/29/16 10:52pm Do you have a Directive to Physician? No 11/18/17 7:15pm Do you have a Medical Power of Rn Shift Mgr? No 11/18/17 7:15pm Do you have an out of hospital Do Not Resuscitate Order? No 11/18/17 7:15pm Do you have any special needs we should be aware of? No 11/18/17 7:15pm Do you have a support person here with you today? No 11/18/17 7:15pm Did patient receive Notice of Privacy Practices? Yes 11/18/17 7:15pm Did patient receive patient rights and responsibilities? Yes 11/18/17 7:15pm Problems Medical Problem Onset Date Status Abdominal pain Unknown Medications Current Home Medications Medication Dose Units Route Directions Days Qty Instructions Start Date Amlodipine Besylate 10 Mg Tablet 10 Mg Oral Daily 30 Tab Lisinopril 10 Mg Tablet 10 Mg Oral Bedtime 30 Tab Pantoprazole Sodium (Protonix) 40 Mg Tablet. 40 Mg Oral Every 12 Hours Ranitidine Hcl (Zantac) 150 Mg Tablet 150 Mg Oral Twice A Day as needed for Indigestion THERAPEUTICALLY SUBSTITUTED WITH PEPCID 20MG Past Home Medications Medication Directions Ordered Status Amlodipine Besylate 10 Mg Tablet, Qhs Discontinued Dexlansoprazole (Dexilant) 30 Mg Cap.mp, 30 Mg Oral Daily Discontinued Diphenoxylate Hcl/Atropine (Diphenoxylate-Atropine Tablet) 1 Each Tablet, 1 Tab Oral Every 6 Hours as needed for Diarrhea Discontinued Esomeprazole Magnesium (Nexium) 40 Mg Capsule., 1 Discontinued Lisinopril 10 Mg Tablet, Q Morning Discontinued Nitrofurantoin Macrocrystal (Nitrofurantoin) 100 Mg Capsule, 100 Mg Oral Three Times A Day Discontinued Nystatin 15 Gm Powder, 15 Gm Topical Discontinued Pantoprazole Sodium (Protonix) 40 Mg Suspdr.pkt, 40 Mg Oral Daily Discontinued Phenazopyridine Hcl 100 Mg Tablet, 100 Mg Oral Every Two Hours as needed for Pain Discontinued Pravastatin Sodium 40 Mg Tablet, Od Discontinued Pt Does Not Have List , Discontinued Ranitidine Hcl (Heartburn Relief) 150 Mg Tablet, Discontinued Sucralfate (Carafate) 1 Gm/10 Ml Oral.susp, 1 Gm Oral Four Times Daily Discontinued Social History Social History Problem Response Recorded Date/Time Onset Date Status Hx Psychiatric Problems No 08/12/2017 9:05pm Not Applicable Not Applicable Hx Eating Disorder No 08/12/2017 9:05pm Not Applicable Not Applicable Hx Substance Use Disorder No 08/12/2017 9:05pm Not Applicable Not Applicable Hx Depression No 08/12/2017 9:05pm Not Applicable Not Applicable Hx Alcohol Use No 08/12/2017 9:05pm Not Applicable Not Applicable Hx Substance Use Treatment No 08/12/2017 9:05pm Not Applicable Not Applicable Hx Physical Abuse No 08/12/2017 9:05pm Not Applicable Not Applicable Smoking Status Start Date Stop Date Never Smoker Hospital Discharge Instructions No hospital discharge instruction information available. Plan of Care Discharge Date 11/18/17 10:06pm Disposition HOME, SELF-CARE Condition at Discharge Stable Instructions/Education Provided Strains Prescriptions See Medication Section Referrals Delores Juárez Additional Instructions/Education REST; DRINK PLENTY OF WATER; FOLLOW UP WITH YOUR PCP; Functional Status No functional status information available. Allergies, Adverse Reactions, Alerts Allergen Type Severity Reaction Status Last Updated Sulfa (Sulfonamide Antibiotics) Allergy Unknown Active 08/12/17 Aspirin Adverse Reaction Unknown "Makes my Acid Reflux worse." Active Immunizations No immunization information available. Vital Signs Acute Vital Signs Vital Response Date/Time Temperature (Fahrenheit) 96.9 degrees F (97.6 - 99.5) 08/15/2017 7:45pm Pulse Pulse Rate (adult) 86 bpm (60 - 90) 11/18/2017 10:01pm Respiratory Rate 18 bpm (12 - 24) 11/18/2017 10:01pm Blood Pressure 154/84 mm Hg 11/18/2017 10:01pm Height 4 ft 11 in 11/18/2017 7:24pm Weight 169 lb 11/18/2017 7:24pm Body Mass Index 34.1 kg/m^2 11/18/2017 7:24pm Results Laboratory Results Test Name Result Units Flags Reference Collection Date/Time Result Date/ Time Comments Prothrombin Time 12.8 seconds 11.9-14.5 08/10/2017 4:20pm 08/10/2017 4: 51pm Prothromb Time International Ratio 0.92 08/10/2017 4:20pm 2017 4:51pm Oral Anticoagulant Therapy INR Values: 1. Low Intensity Therapy 1.5 - 2.0 2. Moderate Intensity Therapy 2.0 - 3.0 3. High Intensity Therapy(1) 2.5 - 3.5 4. High Intensity Therapy(2) 3.0 - 4.0 5. Panic Value INR > 5.0 Activated Partial Thromboplast Time 36.4 seconds H 23.8-35.5 08/10/2017 4 :20pm 08/10/2017 4:51pm B-Type Natriuretic Peptide 14.3 pg/mL 0-100 08/10/2017 4:20pm 2017 5:03pm White Blood Count 4.08 x10e3/uL L 4.8-10.8 08/12/2017 1:40pm 08/12/2017 1:55pm Red Blood Count 4.07 x10e6/uL 3.6-5.1 08/12/2017 1:40pm 08/12/2017 1: 55pm Hemoglobin 13.3 g/dL 12.0-16.0 08/12/2017 1:40pm 08/12/2017 1:55pm Hematocrit 39.4 % 34.2-44.1 08/12/2017 1:40pm 08/12/2017 1:55pm Mean Corpuscular Volume 96.8 fL 81-99 08/12/2017 1:40pm 08/12/2017 1: 55pm Mean Corpuscular Hemoglobin 32.7 pg H 28-32 08/12/2017 1:40pm 2017 1:55pm Mean Corpuscular Hemoglobin Concent 33.8 g/dL 31-35 08/12/2017 1:40pm 08/12/2017 1:55pm Red Cell Distribution Width 12.7 % 11.7-14.4 08/12/2017 1:40pm 2017 1:55pm Platelet Count 130 x10e3/uL L 140-360 08/12/2017 1:40pm 08/12/2017 1: 55pm Neutrophils (%) (Auto) 59.4 % 38.7-80.0 08/12/2017 1:40pm 08/12/2017 1: 55pm Lymphocytes (%) (Auto) 30.6 % 18.0-39.1 08/12/2017 1:40pm 08/12/2017 1: 55pm Monocytes (%) (Auto) 8.6 % 4.4-11.3 08/12/2017 1:40pm 08/12/2017 1: 55pm Eosinophils (%) (Auto) 0.7 % 0.0-6.0 08/12/2017 1:40pm 08/12/2017 1: 55pm Basophils (%) (Auto) 0.7 % 0.0-1.0 08/12/2017 1:40pm 08/12/2017 1:55pm IM GRANULOCYTES % 0.0 % 0.0-1.0 08/12/2017 1:40pm 08/12/2017 1:55pm Neutrophils # (Auto) 2.4 2.1-6.9 08/12/2017 1:40pm 08/12/2017 1:55pm Lymphocytes # (Auto) 1.3 1.0-3.2 08/12/2017 1:40pm 08/12/2017 1:55pm Monocytes # (Auto) 0.4 0.2-0.8 08/12/2017 1:40pm 08/12/2017 1:55pm Eosinophils # (Auto) 0.0 0.0-0.4 08/12/2017 1:40pm 08/12/2017 1:55pm Basophils # (Auto) 0.0 0.0-0.1 08/12/2017 1:40pm 08/12/2017 1:55pm Absolute Immature Granulocyte (auto 0 x10e3/uL 0-0.1 08/12/2017 1:40pm 08/12/2017 1:55pm Sodium Level 140 mmol/L 136-145 08/12/2017 1:40pm 08/12/2017 2:42pm Potassium Level 4.7 mmol/L # 3.5-5.1 08/12/2017 1:40pm 08/12/2017 2:42pm Chloride Level 106 mmol/L 98-107 08/12/2017 1:40pm 08/12/2017 2:42pm Carbon Dioxide Level 24 mmol/L 22-29 08/12/2017 1:40pm 08/12/2017 2: 42pm Anion Gap 14.7 mmol/L 8-16 08/12/2017 1:40pm 08/12/2017 2:42pm Blood Urea Nitrogen 19 mg/dL 7-26 08/12/2017 1:40pm 08/12/2017 2:42pm Creatinine 0.88 mg/dL 0.57-1.11 08/12/2017 1:40pm 08/12/2017 2:42pm BUN/Creatinine Ratio 22 6-25 08/12/2017 1:40pm 08/12/2017 2:42pm Estimat Glomerular Filtration Rate > 60 ML/MIN 60- 08/12/2017 1:40pm 2:42pm Ranges were taken from the National Kidney Disease Education Program and the National Kidney Foundation literature. Reference ranges: 60 or greater: Normal 16-59 (for 3 consecutive months): Chronic kidney disease 15 or less: Kidney failure Glucose Level 117 mg/dL 74-118 08/12/2017 1:40pm 08/12/2017 2:42pm Calcium Level 9.7 mg/dL 8.4-10.2 08/12/2017 1:40pm 08/12/2017 2:42pm Total Bilirubin 0.4 mg/dL 0.2-1.2 08/12/2017 1:40pm 08/12/2017 2:42pm Aspartate Amino Transf (AST/SGOT) 36 IU/L H 5-34 08/12/2017 1:40pm 08/12 2:42pm Alanine Aminotransferase (ALT/SGPT) 13 IU/L 0-55 08/12/2017 1:40pm 2:42pm Total Protein 8.0 g/dL 6.5-8.1 08/12/2017 1:40pm 08/12/2017 2:42pm Albumin 4.1 g/dL 3.5-5.0 08/12/2017 1:40pm 08/12/2017 2:42pm Globulin 3.9 g/dL H 2.3-3.5 08/12/2017 1:40pm 08/12/2017 2:42pm Albumin/Globulin Ratio 1.1 0.8-2.0 08/12/2017 1:40pm 08/12/2017 2: 42pm Alkaline Phosphatase 78 IU/L 40-150 08/12/2017 1:40pm 08/12/2017 2: 42pm Creatine Kinase 52 IU/L 29-168 08/12/2017 1:40pm 08/12/2017 2:56pm Creatine Kinase MB 0.90 ng/mL 0.00-5.00 08/12/2017 1:40pm 08/12/2017 3: 02pm Troponin I 0.018 ng/mL 0-0.300 08/12/2017 1:40pm 08/12/2017 3:02pm Amylase Level 48 U/L 25-125 08/12/2017 1:40pm 08/12/2017 2:42pm Lipase 30 U/L 8-78 08/12/2017 1:40pm 08/12/2017 2:42pm Urine Color YELLOW YELLOW 11/18/2017 8:00pm 11/18/2017 9:59pm Urine Clarity CLEAR CLEAR 11/18/2017 8:00pm 11/18/2017 9:59pm Urine Specific [place] 1.020 1.010-1.025 11/18/2017 8:00pm 2017 9:59pm Urine pH 7 5 - 7 11/18/2017 8:00pm 11/18/2017 9:59pm Urine Leukocyte Esterase NEGATIVE NEGATIVE 11/18/2017 8:00pm 2017 9:59pm Urine Nitrite NEGATIVE NEGATIVE 11/18/2017 8:00pm 11/18/2017 9:59pm Urine Protein NEGATIVE NEGATIVE 11/18/2017 8:00pm 11/18/2017 9:59pm Urine Glucose (UA) NEGATIVE NEGATIVE 11/18/2017 8:00pm 11/18/2017 9: 59pm Urine Ketones NEGATIVE NEGATIVE 11/18/2017 8:00pm 11/18/2017 9:59pm Urine Urobilinogen 0.2 mg/dL 0.2 - 1 11/18/2017 8:00pm 11/18/2017 9: 59pm Urine Bilirubin NEGATIVE NEGATIVE 11/18/2017 8:00pm 11/18/2017 9: 59pm Urine Blood NEGATIVE NEGATIVE 11/18/2017 8:00pm 11/18/2017 9:59pm Urine WBC 0-5 /HPF 0-5 11/18/2017 8:00pm 11/18/2017 9:59pm Urine RBC 0-5 /HPF 0-5 11/18/2017 8:00pm 11/18/2017 9:59pm Urine Bacteria FEW /HPF NONE 11/18/2017 8:00pm 11/18/2017 9:59pm Urine Epithelial Cells MANY /LPF NONE 11/18/2017 8:00pm 11/18/2017 9: 59pm Procedures Procedure Status Date Provider(s) EGD BIOPSY SINGLE/MULTIPLE Completed 08/12/17 TEDDY OBREGON MD Computed tomography of abdomen and pelvis with contrast Active 08/10/17 PEDRO LUIS PENALOZA MD Computed tomography angiography of abdomen and pelvis without then withcontrast Active 08/12/17 MARY SIMPSON MD Encounters Encounter Location Arrival/Admit Date Discharge/Depart Date Attending Provider Departed Emergency Room [facility] 11/18/17 7:16pm 10:06pm ANITA JAIME MD Discharged Inpatient (obs) [facility] 08/12/17 6:46pm 8:52pm TEDDY OBREGON MD Departed Emergency Room [facility] 08/10/17 3:02pm 10:32pm PEDRO LUIS PENALOZA MD Departed Emergency Room [facility] 07/26/17 2:16am 8:02am PEDRO LUIS PENALOZA MD Departed Emergency Room [facility] 07/10/17 12:39pm 07/10 3:34pm MARY SIMPSON MD
--- NOTE | 2017-11-22 05:19 | Diagnostic Imaging Report ---
EXAM: LUMBAR SPINE, AP, lateral bilateral and oblique and coned lateral view INDICATION: Right flank pain COMPARISON: CTA of the abdomen and pelvis August 12, 2017 FINDINGS: BONES: Five lumbar-type vertebral bodies. The alignment is within normal limits. No acute displaced fractures. No lytic or blastic lesions. DISCS: The disc-spaces are well-maintained. JOINTS: Multilevel facet arthropathy, predominantly L4/L5 and L5/S1. SOFT TISSUES: Cholecystectomy clips. IMPRESSION: No acute lumbar spine radiographic findings. Signed by: Dr. Oanh Garcia M.D. on 11/22/2017 5:15 AM
--- NOTE | 2017-11-22 05:20 | Diagnostic Imaging Report ---
EXAM: HIP RIGHT 2-3 VW (+/- PELVIS) INDICATION: Right flank pain COMPARISON: None FINDINGS: BONES: No acute fractures. JOINTS: No malalignment. SOFT TISSUES: Normal IMPRESSION: No acute right hip findings. Signed by: Dr. Oanh Garcia M.D. on 11/22/2017 5:17 AM
== END 2017-11-22 05:48 | disposition home or self-care (01) ==
LOC: ER 03:54
DX: M54.5 Low back pain (principal); S39.012A Strain of muscle, fascia and tendon of lower back, initial encounter; M25.551 Pain in right hip; K21.9 Gastro-esophageal reflux disease without esophagitis
CPT/HCPCS: 72110; 99283

== ENCOUNTER 2017-12-17 21:50 | Emergency (ER) | payer MEDICARE ==
[~2017-12-17] VITALS: Ht 149.9 cm; Wt 76.7 kg
--- OUTSIDE RECORDS SUMMARY | 2017-12-17 21:53 | XMS REPORT | Continuity of Care Document ---
Author Author [facility] Organization [facility] Address [address] [facility] [place] [address] Phone Unavailable Care Team Providers Care Senior Drafter Name Role Phone NONSTAFF PCP Unavailable Insurance Providers Guarantor Glory Linder Address [address] [facility] [address] [place] [address] Email [email or web address] Payer [employer] Policy Number [id number] Subscriber's Name Glory Linder Relationship 18 Self / Same As Patient Group Number [id number] Group Name [place] Effective Date 15 Advance Directives Directive Response Recorded Date/Time Does the patient have an advance directive? No 08/12/17 9:05pm If yes, is advance directive on file with [facility]? No 04/23/12 6:39am If not on file with [facility] will patient provide a copy? Yes 11/22/17 3:59am Do you have a Directive to Physician? No 11/22/17 3:59am Do you have a Medical Power of Corrections Cadet? No 11/22/17 3:59am Do you have an out of hospital Do Not Resuscitate Order? No 11/22/17 3:59am Do you have any special needs we should be aware of? No 11/22/17 3:59am Do you have a support person here with you today? Yes 11/22/17 3:59am Did patient receive Notice of Privacy Practices? Yes 11/22/17 3:59am Did patient receive patient rights and responsibilities? Yes 11/22/17 3:59am Problems Medical Problem Onset Date Status Abdominal pain Unknown Medications Current Home Medications Medication Dose Units Route Directions Days Qty Instructions Start Date Amlodipine Besylate 10 Mg Tablet 10 Mg Oral Daily 30 Tab Lisinopril 10 Mg Tablet 10 Mg Oral Bedtime 30 Tab Pantoprazole Sodium (Protonix) 40 Mg Tablet.dr 40 Mg Oral Every 12 Hours Ranitidine [...] information available. Plan of Care Discharge Date 11/22/17 5:48am Disposition HOME, SELF-CARE Condition at Discharge Stable Instructions/Education Provided Strains Forms Provided Work/School Excuse Prescriptions See Medication Section Additional Instructions/Education TAKE MEDICATIONS PRESCRIBED FOLLOW-UP WITH YOUR PRIMARY CARE PROVIDER, CALL FOR APPOINTMENT Functional Status No functional status information available. [...] 11/18/2017 10:01pm Height 4 ft 11 in 11/22/2017 4:05am Weight 169 lb 11/22/2017 4:05am Body Mass Index 34.1 kg/m^2 11/22/2017 4:05am Results Laboratory Results Test Name Result Units [...] CLEAR 11/18/2017 8:00pm 11/18/2017 9:59pm Urine Specific [place] 1.020 1.010-1.025 11/18/2017 8:00pm 2017 9:59pm Urine [...] Discharge/Depart Date Attending Provider Departed Emergency Room [facility] 11/22/17 3:54am 5:48am KHRIS OTOOLE MD Departed Emergency Room [facility] 11/18/17 7:16pm 10:06pm ANITA JAIME MD Discharged Inpatient (obs) [facility] 08/12/17 6:46pm 8:52pm TEDDY OBREGON MD [facility] 08/10/17 3:02pm 10:32pm PEDRO LUIS PENALOZA MD [facility] 07/26/17 2:16am 8:02am PEDRO LUIS PENALOZA MD [facility] 07/10/17 12:39pm 07/10 3:34pm MARY SIMPSON MD
[2017-12-26] MEDS ORDERED: VITAMIN D400 UNIT PO (11:28)
[2017-12-27] MEDS ORDERED: FAMOTIDINE20 MG PO (11:11)
== END 2017-12-17 22:36 | disposition home or self-care (01) ==
LOC: ER 21:50
DX: K62.89 Other specified diseases of anus and rectum (principal); K64.4 Residual hemorrhoidal skin tags; I10 Essential (primary) hypertension; E78.00 Pure hypercholesterolemia, unspecified; K21.9 Gastro-esophageal reflux disease without esophagitis
CPT/HCPCS: 99284

== ENCOUNTER 2017-12-21 06:16 | Emergency (ER) | payer MEDICARE ==
[~2017-12-21] VITALS: Ht 149.9 cm; Wt 76.7 kg
--- OUTSIDE RECORDS SUMMARY | 2017-12-21 06:18 | XMS REPORT | Continuity of Care Document ---
Author Author [facility] Organization [facility] Address [address] [place] [address] Phone Unavailable Care Team Providers Care Road Tester Name Role Phone NONSTAFF PCP Unavailable Insurance Providers Guarantor Glory Linder Address [address] [facility] [address] [place] [address] Email [email or web address] Payer [employer] Policy Number [id number] Subscriber's Name Glory Linder Relationship 18 Self / Same As Patient Group Number [id number] Group Name [place] Effective Date 15 Advance Directives Directive Response Recorded Date/Time Does the patient have an advance directive? No 08/12/17 9:05pm If yes, is advance directive on file with [facility]? No 04/23/12 6:39am If not on file with [facility] will patient provide a copy? Yes 11/22/17 3:59am Do you have a Directive to Physician? No 12/17/17 10:15pm Do you have a Medical Power of Natural Gas Trader? No 12/17/17 10:15pm Do you have an out of hospital Do Not Resuscitate Order? No 12/17/17 10:15pm Do you have any special needs we should be aware of? No 12/17/17 10:15pm Do you have a support person here with you today? Yes 12/17/17 10:15pm Did patient receive Notice of Privacy Practices? Yes 12/17/17 10:15pm Did patient receive patient rights and responsibilities? Yes 12/17/17 10:15pm Problems Medical Problem Onset Date Status Abdominal [...] Applicable Smoking Status Start Date Stop Date Unknown if ever smoked Hospital Discharge Instructions No hospital discharge instruction information available. Plan of Care Discharge Date 12/17/17 10:36pm Disposition HOME, SELF-CARE Condition at Discharge Stable Instructions/Education Provided Hemorrhoids Forms Provided Work/School Excuse Prescriptions See Medication Section Referrals [place] Delores Juárez Additional Instructions/Education FOLLOW UP WITH YOU PRIMARY CARE DOCTOR ON MONDAY IF NOT FEELING WELL. USE SITZ BATH AND DONUT-SHAPED PILLOW TO SIT ON TO RELIEVE THE PAIN RETURN TO ER IF BLEEDING OCCUR, ONSET OF NEW OR WORSENIN GOF CURRENT SYMPTOMS. Functional Status No functional status information available. [...] 11/18/2017 10:01pm Height 4 ft 11 in 12/17/2017 10:22pm Weight 169 lb 12/17/2017 10:22pm Body Mass Index 34.1 kg/m^2 12/17/2017 10:22pm Results Laboratory Results Test Name Result Units [...] CLEAR 11/18/2017 8:00pm 11/18/2017 9:59pm Urine Specific [place] 1.020 1.010-1.025 11/18/2017 8:00pm 2017 9:59pm Urine [...] Discharge/Depart Date Attending Provider Departed Emergency Room [facility] 12/17/17 9:50pm 10:36pm ANITA JAIME MD Departed Emergency [facility] 11/22/17 3:54am 5:48am KHRIS OTOOLE MD Departed Emergency [facility] 11/18/17 7:16pm 10:06pm ANITA JAIME MD [facility]patient [facility]obs[facility] 08/12/17 6:46pm 8:52pm TEDDY OBREGON MD Departed Emergency [facility] 08/10/17 3:02pm 10:32pm PEDRO LUIS PENALOZA MD Departed Emergency [facility] 07/26/17 2:16am 8:02am PEDRO LUIS PENALOZA MD Departed Emergency [facility] 07/10/17 12:39pm 07/10 3:34pm MARY SIMPSON MD
[2017-12-21 06:56] LABS: BASOPHILS % 0.4 % (0.0-1.0); EOSINOPHILS # (AUTO) 0.1 (0.0-0.4); EOSINOPHILS % 1.8 % (0.0-6.0); HEMATOCRIT 40.8 % (34.2-44.1); HEMOGLOBIN 13.9 g/dL (12.0-16.0); LYMPHOCYTES # (AUTO) 2.1 (1.0-3.2); LYMPHOCYTES % 45.7 % (18.0-39.1); MEAN CORPUSCULAR HEMOGLOBIN 32.6 pg (28-32); MEAN CORPUSCULAR HGB CONC 34.1 g/dL (31-35); MEAN CORPUSCULAR VOLUME 95.8 fL (81-99); MONOCYTES # (AUTO) 0.5 (0.2-0.8); MONOCYTES % 11.3 % (4.4-11.3); NEUTROPHILS # (AUTO) 1.8 (2.1-6.9); NEUTROPHILS % 40.8 % (38.7-80.0); PLATELET COUNT 182 x10e3/uL (140-360); RED BLOOD COUNT 4.26 x10e6/uL (3.6-5.1)
[2017-12-21 07:04] LABS: CLARITY,URINE CLEAR (CLEAR); COLOR,URINE YELLOW (YELLOW)
[2017-12-21 07:05] LABS: BILIRUBIN,URINE NEGATIVE (NEGATIVE); KETONES,URINE NEGATIVE (NEGATIVE); LEUKOCYTE ESTERASE ,URINE NEGATIVE (NEGATIVE); NITRITE,URINE NEGATIVE (NEGATIVE); PROTEIN,URINE DIPSTICK NEGATIVE (NEGATIVE); URINE UROBILINOGEN 0.2 mg/dL (0.2 - 1)
[2017-12-21] MEDS ORDERED: FAMOTIDINE 20 MG/2 ML VIAL IV STA (07:10)
[2017-12-21 07:13] LABS: AMYLASE 48 U/L (25-125); LIPASE 24 U/L (8-78)
[2017-12-21 07:14] LABS: EPITHELIAL CELLS,URINE FEW /LPF; TRANSITIONAL EPI CELLS,URINE FEW; WBC,URINE (MAN) 0-5 /HPF (0-5)
[2017-12-21 07:15] LABS: ALANINE AMINOTRANSFERASE 21 IU/L (0-55); ALBUMIN 3.9 g/dL (3.5-5.0); ALBUMIN/GLOBULIN RATIO 1.3 (0.8-2.0); ALKALINE PHOSPHATASE 80 IU/L (40-150); ANION GAP 13.7 mmol/L (8-16); BLOOD UREA NITROGEN 13 mg/dL (7-26); BUN/CREATININE RATIO 15 (6-25); CALCIUM 9.9 mg/dL (8.4-10.2); CARBON DIOXIDE 28 mmol/L (22-29); CHLORIDE 103 mmol/L (98-107); CREATININE, SERUM 0.84 mg/dL (0.57-1.11); EST GLOMERULAR FILTRATION RATE > 60 ML/MIN (60-); GLUCOSE 100 mg/dL (74-118); POTASSIUM 3.7 mmol/L (3.5-5.1); SODIUM 141 mmol/L (136-145)
[2017-12-21] MEDS ORDERED: MAGNESIUM/ALUMINUM/SIMETHICONE 30 ML UDC PO ONE (07:15)
[2017-12-21] MEDS ORDERED: LIDOCAINE VISC 2% SOLN 15 ML UDC PO ONE (07:15)
[2017-12-21] MEDS ORDERED: BELLADONNA ALK/PHENOBARBITAL 5 ML UDC PO ONE (07:15)
[2017-12-21 07:34] LABS: CREATINE KINASE 45 IU/L (29-168)
--- NOTE | 2017-12-21 07:42 | Diagnostic Imaging Report ---
PROCEDURE:CHEST 2 VIEWS TECHNIQUE:PA and lateral chest INDICATION:Epigastric pain COMPARISON:None. FINDINGS: Right apical calcified granulomas. Lungs are otherwise clear and symmetrically inflated. No pleural effusions. Upper limits of normal heart size for technique. Normal pulmonary vasculature. Intact skeleton. CONCLUSION: No acute abnormality. Dictated by: Nuno Vasquez M.D. on 12/21/2017 at 7:44 Electronically approved by: Nuno Vasquez M.D. on 12/21/2017 at 7:44
[2017-12-21 08:30] VITALS: BP 158/83
[2017-12-26] MEDS ORDERED: VITAMIN D400 UNIT PO (11:28)
== END 2017-12-21 08:50 | disposition home or self-care (01) ==
LOC: ER 06:16
DX: K29.00 Acute gastritis without bleeding (principal); K21.9 Gastro-esophageal reflux disease without esophagitis; K44.9 Diaphragmatic hernia without obstruction or gangrene; I10 Essential (primary) hypertension; Z88.6 Allergy status to analgesic agent; Z88.2 Allergy status to sulfonamides
CPT/HCPCS: 36415; 71046; 80053; 81001; 82150; 82550; 82553; 83690; 84484; 85025; 93005; 99284

== ENCOUNTER 2017-12-21 20:02 | Emergency (ER) | payer MEDICARE ==
[~2017-12-21] VITALS: Ht 149.9 cm; Wt 76.7 kg
--- OUTSIDE RECORDS SUMMARY | 2017-12-21 20:05 | XMS REPORT | Continuity of Care Document ---
Author Author [facility] Organization [facility] Address [address] [facility] [place] [address] Phone Unavailable Care Team Providers Care Doorkeeper Name Role Phone NONSTAFF PCP Unavailable Insurance Providers Guarantor Glory Linder Address [address] [facility] [address] [place] [address] Email [email or web address] Payer [employer] Policy Number [id number] Subscriber's Name Glory Linder Relationship 18 Self / Same As Patient Group Number [id number] Group Name [place] Effective Date 15 Advance Directives Directive Response Recorded Date/Time Does the patient have an advance directive? No 08/12/17 9:05pm If yes, is advance directive on file with [facility]? No 04/23/12 6:39am If not on file with [facility] will patient provide a copy? Yes 11/22/17 3:59am Do you have a Directive to Physician? No 12/21/17 7:27am Do you have a Medical Power of Tube Worker? No 12/21/17 7:27am Do you have an out of hospital Do Not Resuscitate Order? No 12/21/17 7:27am Do you have any special needs we should be aware of? No 12/21/17 7:27am Do you have a support person here with you today? Yes 12/21/17 7:27am Did patient receive Notice of Privacy Practices? Yes 12/21/17 7:27am Did patient receive patient rights and responsibilities? Yes 12/21/17 7:27am Problems Medical Problem Onset Date Status Abdominal [...] information available. Plan of Care Discharge Date 12/21/17 8:50am Disposition HOME, SELF-CARE Condition at Discharge Stable Instructions/Education Provided Abdominal Pain - Adult Forms Provided Work/School Excuse Prescriptions See Medication Section Additional Instructions/Education FOLLOW UP WITH YOUR DOCTOR CONTINUING TAKING YOUR PROTONIX AND PEPCID RETURN TO ER IF SYMPTOMS WORSEN, YOU NOTICE BLOOD IN YOUR STOOL OR IF YOUR STOOLS ARE BLACK. Functional Status No functional status information available. Allergies, Adverse Reactions, Alerts Allergen Type Severity Reaction Status Last Updated Sulfa (Sulfonamide Antibiotics) Allergy Unknown Active 08/12/17 Aspirin Adverse Reaction Unknown "Makes my Acid Reflux worse." Active Immunizations No immunization information available. Vital Signs Acute Vital Signs Vital Response Date/Time Temperature (Fahrenheit) 96.9 degrees F (97.6 - 99.5) 08/15/2017 7:45pm Pulse Pulse Rate (adult) 75 bpm (60 - 90) 12/21/2017 8:30am Respiratory Rate 20 bpm (12 - 24) 12/21/2017 8:30am Blood Pressure 158/83 mm Hg 12/21/2017 8:30am Height 4 ft 11 in 12/21/2017 6:34am Weight 169 lb 12/21/2017 6:34am Body Mass Index 34.1 kg/m^2 12/21/2017 6:34am Results Laboratory Results Test Name Result Units [...] 08/10/2017 4:20pm 2017 5:03pm White Blood Count 4.51 x10e3/uL L 4.8-10.8 12/21/2017 6:41am 12/21/2017 6:58am Red Blood Count 4.26 x10e6/uL 3.6-5.1 12/21/2017 6:41am 12/21/2017 6: 58am Hemoglobin 13.9 g/dL 12.0-16.0 12/21/2017 6:41am 12/21/2017 6:58am Hematocrit 40.8 % 34.2-44.1 12/21/2017 6:4112/21/2017 6:58am Mean Corpuscular Volume 95.8 fL 81-99 12/21/2017 6:41am 12/21/2017 6: 58am Mean Corpuscular Hemoglobin 32.6 pg H 28-32 12/21/2017 6:41am 2017 6:58am Mean Corpuscular Hemoglobin Concent 34.1 g/dL 31-35 12/21/2017 6:41am 12/21/2017 6:58am Red Cell Distribution Width 13.0 % 11.7-14.4 12/21/2017 6:41am 2017 6:58am Platelet Count 182 x10e3/uL 140-360 12/21/2017 6:41am 12/21/2017 6: 58am Neutrophils (%) (Auto) 40.8 % 38.7-80.0 12/21/2017 6:4112/21/2017 6: 58am Lymphocytes (%) (Auto) 45.7 % H 18.0-39.1 12/21/2017 6:4112/21/2017 6 :58am Monocytes (%) (Auto) 11.3 % 4.4-11.3 12/21/2017 6:4112/21/2017 6: 58am Eosinophils (%) (Auto) 1.8 % 0.0-6.0 12/21/2017 6:4112/21/2017 6: 58am Basophils (%) (Auto) 0.4 % 0.0-1.0 12/21/2017 6:4112/21/2017 6:58am IM GRANULOCYTES % 0.0 % 0.0-1.0 12/21/2017 6:4112/21/2017 6:58am Neutrophils # (Auto) 1.8 L 2.1-6.9 12/21/2017 6:41am 12/21/2017 6: 58am Lymphocytes # (Auto) 2.1 1.0-3.2 12/21/2017 6:41am 12/21/2017 6:58am Monocytes # (Auto) 0.5 0.2-0.8 12/21/2017 6:41am 12/21/2017 6:58am Eosinophils # (Auto) 0.1 0.0-0.4 12/21/2017 6:41am 12/21/2017 6:58am Basophils # (Auto) 0.0 0.0-0.1 12/21/2017 6:41am 12/21/2017 6:58am Absolute Immature Granulocyte (auto 0 x10e3/uL 0-0.1 12/21/2017 6:41am 12/21/2017 6:58am Urine Color YELLOW YELLOW 12/21/2017 6:41am 12/21/2017 7:05am Urine Clarity CLEAR CLEAR 12/21/2017 6:41am 12/21/2017 7:05am Urine Specific [place] 1.005 L 1.010-1.025 12/21/2017 6:41am 2017 7:05am Urine pH 7 5 - 7 12/21/2017 6:41am 12/21/2017 7:05am Urine Leukocyte Esterase NEGATIVE NEGATIVE 12/21/2017 6:41am 2017 7:05am Urine Nitrite NEGATIVE NEGATIVE 12/21/2017 6:41am 12/21/2017 7:05am Urine Protein NEGATIVE NEGATIVE 12/21/2017 6:41am 12/21/2017 7:05am Urine Glucose (UA) NEGATIVE NEGATIVE 12/21/2017 6:41am 12/21/2017 7: 05am Urine Ketones NEGATIVE NEGATIVE 12/21/2017 6:4112/21/2017 7:05am Urine Urobilinogen 0.2 mg/dL 0.2 - 1 12/21/2017 6:41am 12/21/2017 7: 05am Urine Bilirubin NEGATIVE NEGATIVE 12/21/2017 6:41am 12/21/2017 7: 05am Urine Blood NEGATIVE NEGATIVE 12/21/2017 6:41am 12/21/2017 7:05am Urine WBC 0-5 /HPF 0-5 12/21/2017 6:4112/21/2017 7:14am Urine RBC NONE /HPF 0-5 12/21/2017 6:4112/21/2017 7:14am Urine Bacteria NONE /HPF NONE 12/21/2017 6:4112/21/2017 7:14am Urine Epithelial Cells FEW /LPF NONE 12/21/2017 6:4112/21/2017 7: 14am Urine Transitional Epithelial Cells FEW H NONE 12/21/2017 6:4112/21 7:14am Sodium Level 141 mmol/L 136-145 12/21/2017 6:4112/21/2017 7:16am Potassium Level 3.7 mmol/L 3.5-5.1 12/21/2017 6:4112/21/2017 7:16am Chloride Level 103 mmol/L 98-107 12/21/2017 6:4112/21/2017 7:16am Carbon Dioxide Level 28 mmol/L 22-12/21/2017 6:4112/21/2017 7: 16am Anion Gap 13.7 mmol/L 8-16 12/21/2017 6:4112/21/2017 7:16am Blood Urea Nitrogen 13 mg/dL 7-12/21/2017 6:4112/21/2017 7:16am Creatinine 0.84 mg/dL 0.57-1.11 12/21/2017 6:4112/21/2017 7:16am BUN/Creatinine Ratio 15 6-12/21/2017 6:4112/21/2017 7:16am Estimat Glomerular Filtration Rate > 60 ML/MIN 60- 12/21/2017 6:41 7:16am Ranges were taken from the National Kidney Disease Education Program and the National Kidney Foundation literature. Reference ranges: 60 or greater: Normal 16-59 (for 3 consecutive months): Chronic kidney disease 15 or less: Kidney failure Glucose Level 100 mg/dL 74-118 12/21/2017 6:4112/21/2017 7:16am Calcium Level 9.9 mg/dL 8.4-10.2 12/21/2017 6:4112/21/2017 7:16am Total Bilirubin 0.6 mg/dL 0.2-1.2 12/21/2017 6:41am 12/21/2017 7:16am Aspartate Amino Transf (AST/SGOT) 17 IU/L 5-34 12/21/2017 6:41am 2017 7:16am Alanine Aminotransferase (ALT/SGPT) 21 IU/L 0-55 12/21/2017 6:41am 7:16am Total Protein 6.9 g/dL 6.5-8.1 12/21/2017 6:41am 12/21/2017 7:16am Albumin 3.9 g/dL 3.5-5.0 12/21/2017 6:41am 12/21/2017 7:16am Globulin 3.0 g/dL 2.3-3.5 12/21/2017 6:41am 12/21/2017 7:16am Albumin/Globulin Ratio 1.3 0.8-2.0 12/21/2017 6:41am 12/21/2017 7: 16am Alkaline Phosphatase 80 IU/L 40-150 12/21/2017 6:41am 12/21/2017 7: 16am Creatine Kinase 45 IU/L 29-168 12/21/2017 6:41am 12/21/2017 7:36am Creatine Kinase MB 0.80 ng/mL 0-5.0 12/21/2017 6:41am 12/21/2017 7: 45am Troponin I < 0.001 ng/mL 0-0.300 12/21/2017 6:41am 12/21/2017 7:45am Amylase Level 48 U/L 25-125 12/21/2017 6:41am 12/21/2017 7:14am Lipase 24 U/L 8-78 12/21/2017 6:41am 12/21/2017 7:14am Procedures Procedure Status Date Provider(s) EGD BIOPSY SINGLE/MULTIPLE Completed 08/12/17 TEDDY OBREGON MD Computed tomography of abdomen and pelvis with contrast Active 08/10/17 PEDRO LUIS PENALOZA MD Computed tomography angiography of abdomen and pelvis without then withcontrast Active 08/12/17 MARY SIMPSON MD X-ray of chest, two views Active 12/21/17 LYNN SORENSON MD Encounters Encounter Location Arrival/Admit Date Discharge/Depart Date Attending Provider Departed Emergency Room [facility] 12/21/17 6:16am 8:50am LYNN SORENSON MD Departed Emergency Room [facility] 12/17/17 9:50pm 10:36pm ANITA JAIME MD [facility] 11/22/17 3:54am 5:48am KHRIS OTOOLE MD Depart[facility] 11/18/17 7:16pm 10:06pm ANITA JAIME MD Discharged Inpatient (obs[facility] 08/12/17 6:46pm 8:52pm TEDDY OBREGON MD Departed Emergency [facility] 08/10/17 3:02pm 10:32pm PEDRO LUIS PENALOZA MD Departed Emergency [facility] 07/26/17 2:16am 8:02am PEDRO LUIS PENALOZA MD Departed Emergency [facility] 07/10/17 12:39pm 07/10 3:34pm MARY SIMPSON MD
[2017-12-26] MEDS ORDERED: VITAMIN D400 UNIT PO (11:28)
== END 2017-12-22 00:39 | disposition short-term general hospital (02) ==
LOC: ER 20:02
DX: K21.9 Gastro-esophageal reflux disease without esophagitis (principal); Z53.21 Procedure and treatment not carried out due to patient leaving prior to being seen by health care provider; Z88.6 Allergy status to analgesic agent; Z88.2 Allergy status to sulfonamides
CPT/HCPCS: 93005

== ENCOUNTER 2017-12-23 18:35 | Emergency (ER) | payer MEDICARE ==
[~2017-12-23] VITALS: Ht 149.9 cm; Wt 76.7 kg
--- OUTSIDE RECORDS SUMMARY | 2017-12-23 18:38 | XMS REPORT | Continuity of Care Document ---
Author Author [facility] Organization [facility] Address [address] [facility] [place] [address] Phone Unavailable Care Team Providers Care Alignment Specialist Name Role Phone NONSTAFF PCP Unavailable Insurance Providers Guarantor Glory Linder Address [address] [facility] [address] [place] [address] Email [email or web address] Payer [employer] Policy Number [id number] Subscriber's Name Glory Linder Relationship 18 Self / Same As Patient Group Number [id number] Group Name [place] MED[place] Effective Date 15 Advance Directives Directive Response Recorded Date/Time Does the patient have an advance directive? No 08/12/17 9:05pm If yes, is advance directive on file with [facility]? No 04/23/12 6:39am If not on file with [facility] will patient provide a copy? Yes 11/22/17 3:59am Do you have a Directive to Physician? No 12/22/17 1:01am Do you have a Medical Power of Excavating Contractor? No 12/22/17 1:01am Do you have an out of hospital Do Not Resuscitate Order? No 12/22/17 1:01am Do you have any special needs we should be aware of? No 12/22/17 1:01am Do you have a support person here with you today? No 12/22/17 1:01am Did patient receive Notice of Privacy Practices? Yes 12/22/17 1:01am Did patient receive patient rights and responsibilities? Yes 12/22/17 1:01am Problems Medical Problem Onset Date Status Abdominal [...] No 08/12/2017 9:05pm Not Applicable Not Applicable Hospital Discharge Instructions No hospital discharge instruction information available. Plan of Care Discharge Date 12/22/17 12:39am Disposition REQUEST WITHDRAWN FOR MSE Condition at Discharge Stable Forms Provided Work/School Excuse Prescriptions See Medication Section Functional Status No functional status information available. [...] 8:30am Height 4 ft 11 in 12/21/2017 8:40pm Weight 169 lb 12/21/2017 8:40pm Body Mass Index 34.1 kg/m^2 12/21/2017 8:40pm Results Laboratory Results Test Name Result Units [...] Red Blood Count 4.26 x10e6/uL 3.6-5.1 12/21/2017 6:4112/21/2017 6: 58am Hemoglobin 13.9 g/dL 12.0-16.0 12/21/2017 6:41am 12/21/2017 6:58am Hematocrit 40.8 % 34.2-44.1 12/21/2017 6:4112/21/2017 6:58am Mean Corpuscular Volume 95.8 fL 81-99 12/21/2017 6:41am 12/21/2017 6: 58am Mean Corpuscular Hemoglobin 32.6 pg H 28-32 12/21/2017 6:41am 2017 6:58am Mean Corpuscular Hemoglobin Concent 34.1 g/dL 31-35 12/21/2017 6:4112/21/2017 6:58am Red Cell Distribution Width 13.0 % 11.7-14.4 12/21/2017 6:412017 6:58am Platelet Count 182 x10e3/uL 140-360 12/21/2017 6:4112/21/2017 6: 58am Neutrophils (%) (Auto) 40.8 % [...] Neutrophils # (Auto) 1.8 L 2.1-6.9 12/21/2017 6:4112/21/2017 6: 58am Lymphocytes # (Auto) 2.1 1.0-3.2 [...] CLEAR 12/21/2017 6:41am 12/21/2017 7:05am Urine Specific [place] 1.005 L 1.010-1.025 12/21/2017 6:41am 2017 7:05am Urine pH 7 5 - 7 12/21/2017 6:41am 12/21/2017 7:05am Urine Leukocyte Esterase NEGATIVE NEGATIVE 12/21/2017 6:41am 2017 7:05am Urine Nitrite NEGATIVE NEGATIVE 12/21/2017 6:41am 12/21/2017 7:05am Urine Protein NEGATIVE NEGATIVE 12/21/2017 6:41am 12/21/2017 7:05am Urine Glucose (UA) NEGATIVE NEGATIVE 12/21/2017 6:41am 12/21/2017 7: 05am Urine Ketones NEGATIVE NEGATIVE 12/21/2017 6:41am 12/21/2017 7:05am Urine Urobilinogen 0.2 mg/dL 0.2 - 1 12/21/2017 6:41am 12/21/2017 7: 05am Urine Bilirubin NEGATIVE NEGATIVE 12/21/2017 6:41am 12/21/2017 7: 05am Urine Blood NEGATIVE NEGATIVE 12/21/2017 6:41am 12/21/2017 7:05am Urine WBC 0-5 /HPF 0-5 12/21/2017 6:41am 12/21/2017 7:14am Urine RBC NONE /HPF 0-5 12/21/2017 6:41am 12/21/2017 7:14am Urine Bacteria NONE /HPF NONE 12/21/2017 6:41am 12/21/2017 7:14am Urine Epithelial Cells FEW /LPF NONE 12/21/2017 6:4112/21/2017 7: 14am Urine Transitional Epithelial Cells FEW H NONE 12/21/2017 6:4112/21 7:14am Sodium Level 141 mmol/L 136-145 12/21/2017 6:4112/21/2017 7:16am Potassium Level 3.7 mmol/L 3.5-5.1 12/21/2017 6:41am 12/21/2017 7:16am Chloride Level 103 mmol/L 98-107 12/21/2017 6:4112/21/2017 7:16am Carbon Dioxide Level 28 mmol/L 22-12/21/2017 6:4112/21/2017 7: 16am Anion Gap 13.7 mmol/L 8-12/21/2017 6:4112/21/2017 7:16am Blood Urea Nitrogen 13 mg/dL [...] 7:16am Total Bilirubin 0.6 mg/dL 0.2-1.2 12/21/2017 6:4112/21/2017 7:16am Aspartate Amino Transf (AST/SGOT) 17 IU/L 5-34 12/21/2017 6:412017 7:16am Alanine Aminotransferase (ALT/SGPT) 21 IU/L 0-55 [...] Discharge/Depart Date Attending Provider Departed Emergency Room [facility] 12/21/17 8:02pm 12:39am PEDRO LUIS PENALOZA MD Departed Emergency Room [facility] 12/21/17 6:16am 8:50am LYNN SORENSON MD [...]
[2017-12-23] MEDS ORDERED: ONDANSETRON HCL 4 MG ORAL DISINTEGRATING TAB PO ONE (19:15)
[2017-12-23 19:34] LABS: BILIRUBIN,URINE NEGATIVE (NEGATIVE); CLARITY,URINE CLEAR (CLEAR); COLOR,URINE YELLOW (YELLOW); KETONES,URINE TRACE (NEGATIVE); LEUKOCYTE ESTERASE ,URINE NEGATIVE (NEGATIVE); NITRITE,URINE NEGATIVE (NEGATIVE); PROTEIN,URINE DIPSTICK NEGATIVE (NEGATIVE); URINE UROBILINOGEN 0.2 mg/dL (0.2 - 1)
[2017-12-23 19:43] LABS: BACTERIA,URINE RARE /HPF; EPITHELIAL CELLS,URINE FEW /LPF; MUCUS,URINE FEW (RARE); RBC,URINE 0-5 /HPF (0-5); WBC,URINE (MAN) 0-5 /HPF (0-5)
[2017-12-23 20:25] LABS: BASOPHILS % 0.4 % (0.0-1.0); EOSINOPHILS % 0.2 % (0.0-6.0); HEMATOCRIT 42.1 % (34.2-44.1); HEMOGLOBIN 14.3 g/dL (12.0-16.0); LYMPHOCYTES # (AUTO) 1.3 (1.0-3.2); LYMPHOCYTES % 25.9 % (18.0-39.1); MEAN CORPUSCULAR HEMOGLOBIN 32.6 pg (28-32); MEAN CORPUSCULAR VOLUME 96.1 fL (81-99); MONOCYTES # (AUTO) 0.4 (0.2-0.8); MONOCYTES % 8.6 % (4.4-11.3); NEUTROPHILS # (AUTO) 3.3 (2.1-6.9); NEUTROPHILS % 64.7 % (38.7-80.0); PLATELET COUNT 207 x10e3/uL (140-360); RED BLOOD COUNT 4.38 x10e6/uL (3.6-5.1); RED CELL DISTRIBUTION WIDTH 12.6 % (11.7-14.4)
[2017-12-23 20:40] LABS: ALBUMIN 4.1 g/dL (3.5-5.0); ALBUMIN/GLOBULIN RATIO 1.3 (0.8-2.0); CALCIUM 9.8 mg/dL (8.4-10.2); CREATININE, SERUM 0.95 mg/dL (0.57-1.11); MAGNESIUM 2.4 MG/DL (1.3-2.1)
[2017-12-26] MEDS ORDERED: VITAMIN D400 UNIT PO (11:28)
[2017-12-27] MEDS ORDERED: FAMOTIDINE20 MG PO (11:11)
== END 2017-12-23 22:05 | disposition home or self-care (01) ==
LOC: ER 18:35
DX: R19.7 Diarrhea, unspecified (principal); R11.0 Nausea; R10.10 Upper abdominal pain, unspecified; K29.50 Unspecified chronic gastritis without bleeding
CPT/HCPCS: 36415; 80053; 81001; 82150; 83690; 83735; 85025; 99283

== ENCOUNTER → 2017-12-27 | Day surgery (SDC) | payer MEDICARE ==
[~2017-12-27] MED LIST changes: +FAMOTIDINE20 MG PO; +FENTANYL CITRATE/PF 100MCG/2 ML INJ ONE; +LIDOCAINE HCL 2% LOCAL INJ 5 ML SDV VIAL INJ ONE; +PROPOFOL IV EMULSION 10 MG/ML 50 ML VIAL ONE; +VITAMIN D400 UNIT PO
--- OUTSIDE RECORDS SUMMARY | 2017-12-27 10:02 | XMS REPORT | Continuity of Care Document ---
Author Author [facility] Organization [facility] Address [address] [facility] [place] [address] Phone Unavailable Care Team Providers Care Machine Mover Name Role Phone NONSTAFF PCP Unavailable Insurance Providers Guarantor Glory Linder Address [address] [facility] [address] [place] [address] Email [email or web address] Payer [employer] Policy Number [id number] Subscriber's Name Glory Linder Relationship 18 Self / Same As Patient Group Number [id number] Group Name [place] Effective Date 15 Advance Directives Directive Response Recorded Date/Time Does the patient have an advance directive? No 08/12/17 9:05pm If yes, is advance directive on file with [facility]? No 04/23/12 6:39am If not on file with [facility] will patient provide a copy? Yes 11/22/17 3:59am Do you have a Directive to Physician? No 12/23/17 7:12pm Do you have a Medical Power of Refinery Superintendent? No 12/23/17 7:12pm Do you have an out of hospital Do Not Resuscitate Order? No 12/23/17 7:12pm Do you have any special needs we should be aware of? No 12/23/17 7:12pm Do you have a support person here with you today? Yes 12/23/17 7:13pm Did patient receive Notice of Privacy Practices? Yes 12/23/17 7:13pm Did patient receive patient rights and responsibilities? Yes 12/23/17 7:13pm Problems Medical Problem Onset Date Status Abdominal [...] information available. Plan of Care Discharge Date 12/23/17 10:05pm Disposition HOME, SELF-CARE Condition at Discharge Stable Instructions/Education Provided Abdominal Pain - Adult Forms Provided Work/School Excuse Prescriptions See Medication Section Referrals EARLINE RENNER MD Order Date: Call for an appointment Address: [address] [place] [address] [address] [place] [address] Note: Call office Monday to schedule appointment to be see by Dr. Renner and not the office Physician's Seed Core Operator. Additional Instructions/Education Call for follow up appointment to see Dr. Renner in the office. He instructed to have you tell office to schedule the appointment with him and not the office Physician's Seed Core Operator. Continue to take the medication as prescribed by your physicians. discussed at the bedside, drink fluids, rest and return to the emergency department for any fever, shortness of breath, chest pain, abdominal pain, trouble handling oral secretions or any new concerns. Functional Status No functional status information available. [...] 12/21/2017 8:30am Height 4 ft 11 in 12/23/2017 6:38pm Weight 169 lb 12/23/2017 6:38pm Body Mass Index 34.1 kg/m^2 12/23/2017 6:38pm Results Laboratory Results Test Name Result Units [...] 14.3 pg/mL 0-100 08/10/2017 4:20pm 2017 5:03pm Urine Transitional Epithelial Cells FEW H NONE 12/21/2017 6:41am 12/21 7:14am Creatine Kinase 45 IU/L 29-168 12/21/2017 6:41am 12/21/2017 7:36am Creatine Kinase MB 0.80 ng/mL 0-5.0 12/21/2017 6:41am 12/21/2017 7: 45am Troponin I < 0.001 ng/mL 0-0.300 12/21/2017 6:41am 12/21/2017 7:45am White Blood Count 5.13 x10e3/uL 4.8-10.8 12/23/2017 8:13pm 12/23/2017 8 :25pm Red Blood Count 4.38 x10e6/uL 3.6-5.1 12/23/2017 8:13pm 12/23/2017 8: 25pm Hemoglobin 14.3 g/dL 12.0-16.0 12/23/2017 8:12/23/2017 8:25pm Hematocrit 42.1 % 34.2-44.1 12/23/2017 8:12/23/2017 8:25pm Mean Corpuscular Volume 96.1 fL 81-99 12/23/2017 8:12/23/2017 8: 25pm Mean Corpuscular Hemoglobin 32.6 pg H 28-32 12/23/2017 8:13pm 2017 8:25pm Mean Corpuscular Hemoglobin Concent 34.0 g/dL 31-35 12/23/2017 8:13pm 12/23/2017 8:25pm Red Cell Distribution Width 12.6 % 11.7-14.4 12/23/2017 8:132017 8:25pm Platelet Count 207 x10e3/uL 140-360 12/23/2017 8:13pm 12/23/2017 8: 25pm Neutrophils (%) (Auto) 64.7 % 38.7-80.0 12/23/2017 8:13pm 12/23/2017 8: 25pm Lymphocytes (%) (Auto) 25.9 % 18.0-39.1 12/23/2017 8:13pm 12/23/2017 8: 25pm Monocytes (%) (Auto) 8.6 % 4.4-11.3 12/23/2017 8:13pm 12/23/2017 8: 25pm Eosinophils (%) (Auto) 0.2 % 0.0-6.0 12/23/2017 8:13pm 12/23/2017 8: 25pm Basophils (%) (Auto) 0.4 % 0.0-1.0 12/23/2017 8:13pm 12/23/2017 8:25pm IM GRANULOCYTES % 0.2 % 0.0-1.0 12/23/2017 8:pm 12/23/2017 8:25pm Neutrophils # (Auto) 3.3 2.1-6.9 12/23/2017 8:13pm 12/23/2017 8:25pm Lymphocytes # (Auto) 1.3 1.0-3.2 12/23/2017 8:13pm 12/23/2017 8:25pm Monocytes # (Auto) 0.4 0.2-0.8 12/23/2017 8:13pm 12/23/2017 8:25pm Eosinophils # (Auto) 0.0 0.0-0.4 12/23/2017 8:pm 12/23/2017 8:25pm Basophils # (Auto) 0.0 0.0-0.1 12/23/2017 8:pm 12/23/2017 8:25pm Absolute Immature Granulocyte (auto 0.01 x10e3/uL 0-0.1 12/23/2017 8: pm 12/23/2017 8:25pm Urine Color YELLOW YELLOW 12/23/2017 7:pm 12/23/2017 7:35pm Urine Clarity CLEAR CLEAR 12/23/2017 7:pm 12/23/2017 7:35pm Urine Specific [place] 1.025 1.010-1.025 12/23/2017 7:pm 2017 7:35pm Urine pH 6.5 5 - 7 12/23/2017 7:pm 12/23/2017 7:35pm Urine Leukocyte Esterase NEGATIVE NEGATIVE 12/23/2017 7:pm 2017 7:35pm Urine Nitrite NEGATIVE NEGATIVE 12/23/2017 7:22pm 12/23/2017 7:35pm Urine Protein NEGATIVE NEGATIVE 12/23/2017 7:22pm 12/23/2017 7:35pm Urine Glucose (UA) NEGATIVE NEGATIVE 12/23/2017 7:pm 12/23/2017 7: 35pm Urine Ketones TRACE H NEGATIVE 12/23/2017 7:22pm 12/23/2017 7:35pm Urine Urobilinogen 0.2 mg/dL 0.2 - 1 12/23/2017 7:pm 12/23/2017 7: 35pm Urine Bilirubin NEGATIVE NEGATIVE 12/23/2017 7:pm 12/23/2017 7: 35pm Urine Blood NEGATIVE NEGATIVE 12/23/2017 7:pm 12/23/2017 7:35pm Urine WBC 0-5 /HPF 0-5 12/23/2017 7:pm 12/23/2017 7:43pm Urine RBC 0-5 /HPF 0-5 12/23/2017 7:22pm 12/23/2017 7:43pm Urine Bacteria RARE /HPF NONE 12/23/2017 7:pm 12/23/2017 7:43pm Urine Epithelial Cells FEW /LPF NONE 12/23/2017 7:22pm 12/23/2017 7: 43pm Urine Mucus FEW H RARE 12/23/2017 7:pm 12/23/2017 7:43pm Sodium Level 139 mmol/L 136-145 12/23/2017 8:13pm 12/23/2017 8:43pm Potassium Level 4.0 mmol/L 3.5-5.1 12/23/2017 8:13pm 12/23/2017 8:43pm Chloride Level 102 mmol/L 98-107 12/23/2017 8:13pm 12/23/2017 8:43pm Carbon Dioxide Level 27 mmol/L 22-29 12/23/2017 8:13pm 12/23/2017 8: 43pm Anion Gap 14.0 mmol/L 8-16 12/23/2017 8:13pm 12/23/2017 8:43pm Blood Urea Nitrogen 14 mg/dL 7-12/23/2017 8:13pm 12/23/2017 8:43pm Creatinine 0.95 mg/dL 0.57-1.11 12/23/2017 8:13pm 12/23/2017 8:43pm BUN/Creatinine Ratio 15 6-25 12/23/2017 8:13pm 12/23/2017 8:43pm Estimat Glomerular Filtration Rate 58 ML/MIN L 60- 12/23/2017 8:1308/2017 8:43pm Ranges were taken from the National Kidney Disease Education Program and the National Kidney Foundation literature. Reference ranges: 60 or greater: Normal 16-59 (for 3 consecutive months): Chronic kidney disease 15 or less: Kidney failure Glucose Level 217 mg/dL H 74-118 12/23/2017 8:13pm 12/23/2017 8:43pm Calcium Level 9.8 mg/dL 8.4-10.2 12/23/2017 8:13pm 12/23/2017 8:43pm Magnesium Level 2.4 MG/DL H 1.3-2.1 12/23/2017 8:13pm 12/23/2017 8:43pm Total Bilirubin 0.5 mg/dL 0.2-1.2 12/23/2017 8:13pm 12/23/2017 8:43pm Aspartate Amino Transf (AST/SGOT) 20 IU/L 5-34 12/23/2017 8:13pm 2017 8:43pm Alanine Aminotransferase (ALT/SGPT) 21 IU/L 0-55 12/23/2017 8:13pm 08/2017 8:43pm Total Protein 7.3 g/dL 6.5-8.1 12/23/2017 8:13pm 12/23/2017 8:43pm Albumin 4.1 g/dL 3.5-5.0 12/23/2017 8:13pm 12/23/2017 8:43pm Globulin 3.2 g/dL 2.3-3.5 12/23/2017 8:13pm 12/23/2017 8:43pm Albumin/Globulin Ratio 1.3 0.8-2.0 12/23/2017 8:13pm 12/23/2017 8: 43pm Alkaline Phosphatase 77 IU/L 40-150 12/23/2017 8:13pm 12/23/2017 8: 43pm Amylase Level 45 U/L 25-125 12/23/2017 8:13pm 12/23/2017 8:43pm Lipase 27 U/L 8-78 12/23/2017 8:13pm 12/23/2017 8:43pm Procedures Procedure Status Date Provider(s) EGD BIOPSY [...] Discharge/Depart Date Attending Provider [facility] 12/23/17 6:35pm 10:05pm PEDRO LUIS PENALOZA MD [facility] 12/21/17 8:02pm 12:39am PEDRO LUIS PENALOZA MD [facility] 12/21/17 6:16am 8:50am LYNN SORENSON MD [facility] 12/17/17 9:50pm 10:36pm ANITA JAIME MD [facility] 11/22/17 3:54am 5:48am KHRIS OTOOLE MD [facility] 11/18/17 7:16pm 10:06pm ANITA JAIME MD [facility]obs[facility] 08/12/17 6:46pm 8:52pm TEDDY OBREGON MD [facility] 08/10/17 3:02pm 10:32pm PEDRO LUIS PENALOZA MD Dep[facility]ed [facility] 07/26/17 2:16am 8:02am PEDRO LUIS PENALOZA MD Departed Emergency Room [facility] 07/10/17 12:39pm 07/10 3:34pm MARY SIMPSON MD
--- NOTE | 2017-12-27 15:00 | Operative Report ---
DATE OF PROCEDURE: December 27, 2017 REFERRING PHYSICIAN: Dr. Chet uJárez PROCEDURE PERFORMED: Esophagogastroduodenoscopy with biopsies. INDICATIONS FOR PROCEDURE: Epigastric pain, nausea. MEDICATION: Patient was done under MAC. Please see anesthesiologist's note. PROCEDURE: With patient in left lateral decubitus position, flexible fiberoptic Olympus gastroscope was introduced into the esophagus under direct visualization without any difficulty. There was some patchy erythema noted in distal esophagus. The scope was then advanced with ease into the stomach and mucosa overlying the antrum and revealed some diffuse erythema and low-grade to moderate edema and biopsies were obtained, sent to stain for H. pylori. Some polyps were noted in the body of the stomach and some were partially excised with cold biopsy forceps. Pylorus appeared to be of normal contour and shape. Was intubated with ease and the scope was advanced all the way to the 2nd portion of the duodenum. The scope was then withdrawn slowly. Mucosa overlying the proximal 2nd portion and the duodenal bulb appeared to be within normal limits. The scope was then withdrawn back into the stomach and retroflexed and mucosa overlying the fundus and the cardia appeared to be within normal limits. The scope was then straightened out, it was subsequently withdrawn. Patient tolerated procedure well. IMPRESSION 1. Distal esophagitis, mild. 2. Gastritis, biopsied. Biopsies sent to stain for H. pylori. 3. Gastric polyps, some partially excised with cold biopsy forceps. PLAN: Follow up histology. Continue Protonix 40 mg one p.o. a.c. b.i.d. and Carafate 2 grams p.o. a.c. b.i.d. Job#: [id number] DG cc: DR. CHET JUÁREZ
== END | disposition home or self-care (01) ==
LOC: OR 10:01
PROVIDERS: ATTEND Internal Medicine Gastroenterology
DX: K29.70 Gastritis, unspecified, without bleeding (principal); K31.7 Polyp of stomach and duodenum; K20.9 Esophagitis, unspecified; K21.9 Gastro-esophageal reflux disease without esophagitis; I10 Essential (primary) hypertension; E11.9 Type 2 diabetes mellitus without complications; Z88.6 Allergy status to analgesic agent; Z88.2 Allergy status to sulfonamides; Z68.31 Body mass index [BMI] 31.0-31.9, adult
CPT/HCPCS: 43239; J2001

== ENCOUNTER 2018-02-19 18:57 | Emergency (ER) | payer MEDICARE ==
[~2018-02-19] VITALS: Ht 149.9 cm; Wt 76.7 kg
[~2018-02-19 18:57] MED LIST changes: -FENTANYL CITRATE/PF 100MCG/2 ML INJ ONE; -LIDOCAINE HCL 2% LOCAL INJ 5 ML SDV VIAL INJ ONE; -PROPOFOL IV EMULSION 10 MG/ML 50 ML VIAL ONE
[2018-02-19] MEDS ORDERED: LIDOCAINE VISC 2% PO ONE ×3 (19:30)
[2018-02-19] MEDS ORDERED: ALUM PO ONE ×3 (19:30)
[2018-02-19] MEDS ORDERED: SIMETHICONE PO ONE ×3 (19:30)
[2018-02-19] MEDS ORDERED: [UNRECOGNIZED DRUG - OTHER] PO ONE ×3 (19:30)
[2018-02-19] MEDS ORDERED: MAGNESIUM PO ONE ×3 (19:30)
[2018-02-19 20:37] VITALS: BP 153/76
== END 2018-02-19 20:50 | disposition home or self-care (01) ==
LOC: ER 18:57
DX: R10.13 Epigastric pain (principal); K29.50 Unspecified chronic gastritis without bleeding; K21.0 Gastro-esophageal reflux disease with esophagitis; I10 Essential (primary) hypertension; E78.5 Hyperlipidemia, unspecified
CPT/HCPCS: 93005; 99283

== ENCOUNTER 2022-12-19 16:35 | Emergency (ER) | payer MEDICARE, OTHER ==
[~2022-12-19] VITALS: Ht 149.9 cm; Wt 76.7 kg
[2022-12-19] MEDS ORDERED: DONNATAL/LIDOCAINE/MAALOX 30 ML SUSP PO ONE (17:00)
[2022-12-19 17:33] LABS: BASOPHILS % 0.3 % (0.0-1.0); HEMATOCRIT 39.4 % (34.2-44.1); HEMOGLOBIN 13.3 g/dL (12.0-16.0); LYMPHOCYTES % 32.1 % (18.0-39.1); MEAN CORPUSCULAR HEMOGLOBIN 31.1 pg (28-32); MEAN CORPUSCULAR HGB CONC 33.8 g/dL (31-35); MEAN CORPUSCULAR VOLUME 92.3 fL (81-99); MONOCYTES # (AUTO) 0.3 (0.2-0.8); NEUTROPHILS # (AUTO) 1.8 (2.1-6.9); NEUTROPHILS % 58.6 % (38.7-80.0); PLATELET COUNT 140 x10e3/uL (140-360); RED BLOOD COUNT 4.27 x10e6/uL (3.6-5.1)
[2022-12-19 17:50] LABS: ALBUMIN 3.7 g/dL (3.5-5.0); ALBUMIN/GLOBULIN RATIO 1.2 (0.8-2.0); ANION GAP 16.4 mmol/L (8-16); CALCIUM 9.1 mg/dL (8.4-10.2); POTASSIUM 3.4 mmol/L (3.5-5.1)
[2022-12-19 17:57] LABS: CREATINE KINASE MB 0.9 ng/mL (0-5.0)
[2022-12-19] MEDS ORDERED: DICYCLOMINE HCL 20 MG/2 ML VIAL IM ONE (18:45)
[2022-12-19] MEDS ORDERED: DICYCLOMINE HCL10 MG PO ×2 (19:12→19:24)
[2022-12-19 19:32] VITALS: BP 129/70; PULSE 74; RESP 18; TEMP 98.3; O2SAT 99
== END 2022-12-19 19:29 | disposition home or self-care (01) ==
LOC: ER 16:39
DX: R05.9 Cough, unspecified (principal); U07.1 COVID-19; R53.81 Other malaise; R10.9 Unspecified abdominal pain; I10 Essential (primary) hypertension; E78.5 Hyperlipidemia, unspecified; E78.00 Pure hypercholesterolemia, unspecified; K21.9 Gastro-esophageal reflux disease without esophagitis; R94.31 Abnormal electrocardiogram [ECG] [EKG]
CPT/HCPCS: 36415; 71045; 80053; 82550; 82553; 84484; 85025; 93005; 99284; C9113; J0500